=== PATIENT | male | born 1980 | race Caucasian/White ===

== ENCOUNTER 2022-03-07 19:42 | Emergency (ER) | payer BC, SELFPAY ==
--- NOTE | ~2022-03-07 | XR_ITS ---
EXAM: XR hand LT min 3V DATE: 03/07/2022 20:20 HISTORY: dogbite to hand,wounds mult fingers, palm prox Lt thumb . COMPARISON: None available. FINDINGS: Normal mineralization. No acute fracture or dislocation. Old ulnar styloid fracture fragme nt. No lytic or blastic lesion. Joint spaces are maintained. No erosion or periosteal change. Subcuta neous emphysema over the dorsum of the hand. IMPRESSION: No acute osseous finding in the left hand. Reviewed, dictated and finalized at location K.
[2022-03-07 19:45] VITALS: BP 153/84; PULSE 84; RESP 18; TEMP 37; O2SAT 100
--- NOTE | 2022-03-07 20:04 | ED.ANIMALBIT ---
HPI - Animal Bite General Chief Complaint: Animal Bite Stated Complaint: dog bite Time Seen by Provider: 03/07/22 19:51 History of Present Illness HPI narrative: 41-year-old male presents to the emergency room for evaluation of a dog bite to his left hand. Patient states the dog is known to him and is up-to-date on his immunizations. Patient reports lacerations to the base of his left thumb and his right pinky. Hand pain is worse with movement. Related Data Allergies Allergy/AdvReac Type Severity Reaction Status Date / Time No Known Allergies Allergy Unverified 10/01/16 17:41 Review of Systems Review of Systems: CONSTITUTIONAL: Denies fever, chills, or sweats. EYES: Denies visual changes, redness, or discharge. ENT: Denies rhinorrhea, congestion, sore throat, or otalgia. CARDIOVASCULAR: Denies chest pain, palpitations, or edema. RESPIRATORY: Denies cough or dyspnea. GASTROINTESTINAL: Denies abdominal pain, nausea, vomiting, or diarrhea. GENITOURINARY: Denies dysuria or hematuria. SKIN: Multiple lacerations and puncture wounds to left hand MUSCULOSKELETAL: Left hand pain NEUROLOGIC: Denies headache, numbness, dizziness, or weakness. PSYCHIATRIC: Denies anxiety or depression. Exam Narrative: GENERAL: Well-appearing, well-nourished, and in no acute distress. HEAD: Normocephalic, atraumatic. EYES: PERRLA and EOMI. CHEST: Clear to auscultation. No respiratory distress. No wheezes rales or rhonchi HEART: Regular rate and rhythm. No murmur heard. Normal peripheral pulses. EXTREMITIES: Left hand: Tenderness to the thumb, palm and fourth and fifth digits SKIN: Left hand: Laceration noted palmar surface of the left hand at the base of the thumb, dorsal surface of the fifth finger, puncture wounds to the third and fourth fingers NEURO: No focal deficits. Alert and oriented x3. PSYCH: Normal mood and affect. Course Vital Signs Vital signs: Vital Signs Temperature 37.0 C 03/07/22 19:45 Pulse Rate 84 03/07/22 19:45 Respiratory Rate 18 03/07/22 19:45 Blood Pressure 153/84 H 03/07/22 19:45 Pulse Oximetry 100 03/07/22 19:45 Oxygen Delivery Room Air 03/07/22 19:45 Temperature 37.0 C 03/07/22 19:45 Pulse Rate 84 03/07/22 19:45 Respiratory Rate 18 03/07/22 19:45 Blood Pressure 153/84 H 03/07/22 19:45 Pulse Oximetry 100 03/07/22 19:45 Oxygen Delivery Room Air 03/07/22 19:45 Procedures Laceration Laceration 1: Date: 03/07/22 Time: 21:04 Site: hand Side (If applicable): left Size (cm): 1 Description: linear Depth: simple, single layer Local Anesthetic: lidocaine 1% Amount of anesthesia used (mL): 3 Pre-repair: irrigated extensively ====== Skin Level ====== Skin layer closed with: nylon Size (cm): 4-0 Number of sutures: 2 Technique: simple, interrupted ====== Subcutaneous Layer ====== ====== Muscle Layer ====== ====== Tendon Layer ====== MDM - Animal Bite MDM Narrative Medical decision making narrative: 41-year-old male presented the emergency room for evaluation of a dog bite to his left hand. Plain films of the left hand showed no acute bony abnormality. Patient had a 2 cm laceration to the palmar side of the base of the thumb, puncture wound to the dorsal side of the hand, dorsal side of the tip of the left middle finger, and a 1 cm stellate laceration over the PIP joint of the left fifth digit. To retentions sutures were placed to the laceration of the base of the left hand after extensive irrigation. Steri-Strips were placed to the laceration over the left fifth digit after extensive irrigation. Patient was given wound care instructions. Discharge Plan Discharge Clinical Impression: Dog bite Patient Disposition: Home, Self-Care Condition: Stable Instructions: Antibiotic Form, Animal Bite (ED), Care For Your Stitches (ED), Laceration (ED) Additional
[2022-03-07] MEDS: HYDROcodone/acetaminophen (*CRX) 5-325 MG TABLET 1 TAB PO (21:12)
[2022-03-07] MEDS: AMOXICILLIN/CLAVULANATE K 875-125 MG TAB 1 TABLET PO (21:12)
== END 2022-03-07 21:35 | disposition home or self-care (01) ==
PROVIDERS: Emergency Provider Nurse Practitioner Family; PCP Physician Assistant
DX: S61.452A Open bite of left hand, initial encounter (principal); W54.0XXA Bitten by dog, initial encounter
CPT/HCPCS: 12001; 73130; 99283; A9270

== ENCOUNTER 2022-03-18 10:07 | Day surgery (SDC) | payer BC, SELFPAY ==
[2022-03-18] VITALS (16 sets, daily range): BP systolic 129–150; BP diastolic 66–81; PULSE 76–95; RESP 14–19; TEMP 36.4–37.2; O2SAT 90–100
--- NOTE | ~2022-03-18 | CT_ITS ---
EXAMINATION: CT abdomen pelvis wo con DATE: 03/18/2022 11:20 INDICATION: Right lower groin and right flank pain TECHNIQUE: Computed tomography (CT) of the abdomen and pelvis was performed without intravenous contr ast. The dose-length product (DLP) was 409.21 mGy-cm. Automated exposure control and iterative recons truction technique were employed. COMPARISON: None FINDINGS: Minimal dependent atelectasis is present in the lung bases. The heart size is normal. The l iver, spleen, pancreas, gallbladder, and adrenal glands are normal. The kidneys are unremarkable. The dilated appendix measures up to 13 mm. There is edematous stranding of the periappendiceal fat. Ther e is no evidence of perforation or periappendiceal abscess. No pathologically enlarged abdominal or p elvic lymph nodes are identified. There is no free intraperitoneal gas or evidence of bowel obstructi on. IMPRESSION: 1. Acute appendicitis. Reviewed, dictated and finalized at location A. IMPRESSION: 1. Acute appendicitis.
--- NOTE | ~2022-03-18 | XR_ITS ---
EXAMINATION: XR hip RT 2V w AP pelvis DATE: 03/18/2022 12:19 INDICATION: Right hip pain. TECHNIQUE: An anteroposterior view of the pelvis and 2 views of right hip were obtained. COMPARISON: CT abdomen and pelvis 03/18/2022 FINDINGS: Bone alignment is normal. No fracture. There is mild osteoarthritis of the hips. There is a dilated loop of small bowel bowel in right abdomen. IMPRESSION: 1. Mild osteoarthritis of the hips. 2. Dilated loop of small bowel in right abdomen, likely adynamic ileus. Reviewed, dictated and finalized at location A.
--- NOTE | 2022-03-18 10:14 | ED.LOWEXIN ---
HPI - Extremity Injury (Lower) General Chief Complaint: Extremity Injury, Lower Stated Complaint: R hip pain, radiating Time Seen by Provider: 03/18/22 10:14 History of Present Illness HPI Narrative: Patient is a previously healthy 41-year-old male presenting to the emergency department for evaluation of right lower quadrant abdominal pain that radiates into his right hip and right testicle. Patient is reporting pain that is worsened over the past 24 hours. Associated with nausea, denies fever or chills. He denies upper abdominal pain or any episodes of emesis. He denies diarrhea or constipation. He denies any hematuria, dysuria, frequency or hesitancy. Patient denies pain such as this in the past. He denies recent fall, injury, heavy lifting or bending. Patient denies any history of abdominal surgery. He denies penile pain or discharge. Patient reports that yesterday he felt the pain radiate down into his right buttocks and right leg and thought maybe he had injured his back but denies any recent back injury or history of back injury or chronic back pain. Patient states that due to the severity of the pain overnight that has prompted his visit this morning. His last solid oral intake was last night. He did have a small amount of water on his way to the hospital this morning approximately 1 hour prior to arrival. Related Data Home Medications Medication Instructions Recorded Confirmed No Home Medications 03/18/22 03/18/22 Allergies Allergy/AdvReac Type Severity Reaction Status Date / Time No Known Allergies Allergy Verified 03/18/22 10:20 Review of Systems Review of Systems: CONSTITUTIONAL: Denies fever, chills, or sweats. EYES: Denies visual changes, redness, or discharge. ENT: Denies rhinorrhea, congestion, sore throat, or otalgia. CARDIOVASCULAR: Denies chest pain, palpitations, or edema. RESPIRATORY: Denies cough or dyspnea. GASTROINTESTINAL: Reports right lower quadrant abdominal pain, reports nausea without vomiting GENITOURINARY: Denies dysuria or hematuria. Reports right testicular pain SKIN: Denies rash or itching. MUSCULOSKELETAL: Denies back pain, reports radiation of pain into right hip NEUROLOGIC: Denies headache, numbness, or weakness. [facility] Past Medical History Medical History (Updated 03/18/22 @ 11:55 by Joy Givens MD) Dog bite, hand Social History Social History (Updated 03/18/22 @ 11:10 by Joy Givens MD) Smoking status: Never smoker Alcohol intake: current Alcohol use details: occasional Substance use: never Gender identity (if verbalized by the patient): Male Exam Narrative: GENERAL: Awake, alert, conversant HEAD: Normocephalic, atraumatic. EYES: PERRLA and EOMI. ENT: Nares clear, no rhinorrhea or epistaxis. Mucous membranes moist. NECK: Supple. CHEST: No respiratory distress, breathing even and non labored HEART: Regular rate, sinus rhythm ABDOMEN:Non distended, tender in the right lower quadrant, positive guarding, no flank tenderness bilaterally, negative Rovsing sign, no rebound, nonrigid EXTREMITIES: Normal range of motion. No edema. SKIN: Warm, dry, no rash. NEURO:No focal deficits. Alert and oriented x3 Course Vital Signs Vital signs: Vital Signs Temperature 36.4 C 03/18/22 10:18 Pulse Rate 90 03/18/22 10:18 Respiratory Rate 16 03/18/22 10:18 Blood Pressure 134/75 03/18/22 10:18 Pulse Oximetry 98 03/18/22 10:18 Temperature 36.4 C 03/18/22 10:18 Pulse Rate 90 03/18/22 10:18 Respiratory Rate 16 03/18/22 10:18 Blood Pressure 134/75 03/18/22 10:18 Pulse Oximetry 98 03/18/22 10:18 MDM - Extremity Injury (Lower) MDM Narrative Medical decision making narrative: Patient presenting for evaluation of right lower quadrant abdominal pain with radiation into the right hip, no flank pain. At the time of assessment, patient is quite tender in the right lower quadrant with concern for potentially renal colic ve
[2022-03-18 11:19] LABS: Basophils Absolute Auto 0.1 K/mm3 (0.0-0.1); Basophils Percent Auto 0.3 % (0.2-1.2); Eosinophils Absolute Auto 0.1 K/mm3 (0-0.3); Eosinophils Percent Auto 0.5 % (0-4.4); Hematocrit 41.1 % (42.0-52.0); Hemoglobin 13.4 g/dL (14.0-18.0); Immature Granulocyte Absolute 0.15 K/mm3 (0.00-0.031); Immature Granulocyte Percent A 0.7 % (0-0.5); Lymphocytes Absolute Auto 2.17 K/mm3 (0.9-3.2); Lymphocytes Percent Auto 9.8 % (18.3-44.2); Mean Corpuscular HGB Conc 32.6 g/dl (32-36); Mean Corpuscular Hemoglobin 30.9 pg (26-34); Mean Corpuscular Volume 94.9 fl (80-100); Mean Platelet Volume 8.6 fl (7.4-10.4); Monocytes Absolute Auto 1.2 K/mm3 (0.1-0.6); Monocytes Percent Auto 5.5 % (2.6-8.5); Neutrophils Absolute Auto 18.5 K/mm3 (1.3-6.7); Neutrophils Percent Auto 83.2 % (45.5-73.1); Platelet Count Result 287 k/mm3 (150-375); Red Blood Count 4.33 M/mm3 (4.6-6.20); Red Cell Distribution Width 12.8 % (11.5-14.5); White Blood Count 22.2 K/mm3 (4.5-10.0)
[2022-03-18 11:22] LABS: Appearance Urine Clear (Clear); Bilirubin Urine Negative (Negative); Color Urine Yellow (Yellow); Glucose Urine UA Negative (Negative); Ketones Urine Negative (Negative); Leukocyte Esterase Ur Negative LEU/UL (Negative); Nitrate Urine Negative (Negative); Protein Urine Negative (Negative); Urobilinogen Urine 0.2 mg/dL (<2.0)
[2022-03-18 11:25] LABS: Mucus Urine Rare /lpf
[2022-03-18 11:33] LABS: CRP 7.3 mg/dL (<1.0)
[2022-03-18 11:36] LABS: Add Urine Microscopic? YES; Blood Urine Trace-Intact (Negative)
[2022-03-18 11:50] LABS: Erythrocyte Sedimentation Rate 10 mm/hr (0-20)
[2022-03-18] MEDS: SODIUM CHLORIDE 0.9% IV 1,000 ML 999 ML IV CONT (11:55)
[2022-03-18] MEDS: ONDANSETRON INJ 4 MG/2 ML VIAL IV PUSH (11:56)
[2022-03-18] MEDS: MORPHINE SULFATE (*CRX) 4 MG/ML INJ IV PUSH (12:21)
--- NOTE | 2022-03-18 13:03 | PM.SD2 ---
Same Day Admit/Disch: [facility] History of Present Illness Chief complaint: Right lower quadrant abdominal pain Narrative: Luis Kimbrough is a 41 year old male who started noticing right lower quadrant pain that went to his buttocks and to his testicle yesterday. This worsened through the night and was associated with nausea. He has had no fever or chills. He came to the emergency room this morning because he was having persistent and more severe pain. He was noted to have tenderness in the right lower quadrant. His white blood cell count was elevated to 20,000. He had a CT scan of the abdomen and pelvis that showed a 13 mm dilated appendix with periappendiceal stranding consistent with acute appendicitis. He is taken to surgery now for laparoscopic appendectomy for acute appendicitis. [facility] Past Medical History Medical History (Updated 03/18/22 @ 11:55 by Joy Givens MD) Dog bite, hand Social History Social History Smoking status: Never smoker Alcohol intake: current Alcohol use details: occasional Substance use: never Gender identity (if verbalized by the patient): Male Same Day Admit/Disch: Med Pre-admit Medications Home Medications Medication Instructions Recorded Confirmed Type hydrocodone 5 mg-acetaminophen 325 1 - 2 tablet PO Q6H PRN pain #10 03/18/22 Rx mg tablet tabs ketorolac 10 mg tablet 10 mg PO Q6H 4 days #16 tabs 03/18/22 Rx Exam Const: General: comfortable and no acute distress; No confusion Orientation/consciousness: patient oriented x3 and No confusion Resp: Effort & Inspection: normal respiratory effort Auscultation: clear to auscultation bilaterally Cardio: Rate: regular rate Rhythm: regular rhythm GI: Inspection: normal to inspection, non-distended and scaphoid GI Palp: Yes Soft to palpation, Yes Tenderness to palpation present (GI) (Very tender right lower quadrant with guarding), Yes Guarding due to palpation present (GI), No Hernia present, No Palpable mass present and Yes Rebound tenderness present Auscultation: normal bowel sounds Neuro: General: patient oriented x3, no focal motor deficits and No confusion Extrem: General: no calf tenderness and no edema Psych: Affect: normal affect Insight: Good insight present (Psych) Judgement: Good judgement present (Psych) DS: Data Data Completed and Pending Labs on day of discharge: Labs from last 24 hours 03/18/22 03/18/22 03/18/22 11:14 11:11 11:11 WBC 22.2 H RBC 4.33 L Hgb 13.4 L Hct 41.1 L MCV 94.9 MCH 30.9 MCHC 32.6 RDW 12.8 Plt Count 287 MPV 8.6 Immature Gran % (Auto) 0.7 H Neut % (Auto) 83.2 H Lymph % (Auto) 9.8 L [place] % (Auto) 5.5 Eos % (Auto) 0.5 Baso % (Auto) 0.3 Lymph # (Auto) 2.17 [place] # (Auto) 1.2 H Eos # (Auto) 0.1 Baso # (Auto) 0.1 Abs Immat Gran (auto) 0.15 H Absolute Neuts (auto) 18.5 H Absolute Nucleated RBC 0.0 Nucleated RBC % 0.0 ESR 10 C-Reactive Protein 7.3 H Urine Color Yellow Urine Appearance Clear Urine pH 7.0 Ur Specific [place] 1.020 Urine Protein Negative Urine Glucose (UA) Negative Urine Ketones Negative Ur Blood (Man) Trace-intact Urine Nitrate Negative Urine Bilirubin Negative Urine Urobilinogen 0.2 Leukocyte Esterase Rfl Negative Urine Mucus Rare DS: Summary Time Spent with Patient Time attestation: Total time spent providing and/or coordinating discharge services: DS: Admitting Diagnosis Discharge Date 03/18/2022 Admitting Diagnosis Acute appendicitis-I discussed the diagnosis with the patient. I discussed the options of medical versus surgical treatment. He prefers to proceed with laparoscopic appendectomy which I have recommended. I discussed the procedure the risks the benefits and the length of recovery. All questions were answered. He understands and agrees to go ahead.
--- NOTE | 2022-03-18 13:09 | WPDHPUPDATE1 ---
History and Physical Update Update Date/Time: 03/18/22 13:09 History and Physical has been reviewed, including an updated exam of the patient. There are NO changes in the patient's condition. Risks, benefits, and alternatives have been discussed and questions answered. Patient agrees to proceed with procedure.
--- NOTE | 2022-03-18 14:03 | WPDANESEPPF ---
Anes - Initial Pre Proc Eval Procedure: Operation Date: 03/18/22 15:00 Proposed Procedures p Laparoscopic Appendectomy - Montrell Love MD Date/Time: 03/18/22 14:03 Surgeon: Montrell Love MD Pre Op Diagnosis: Right lower quadrant abdominal pain Patient Data Age: 41 Gender: M Height: 1.78 m Weight: 81 kg Last Vital Signs Temp 36.4 C 03/18/22 10:18 Pulse 90 03/18/22 10:18 Resp 16 03/18/22 10:18 BP 131/70 03/18/22 12:01 Pulse Ox 100 03/18/22 13:15 Allergies Allergy/AdvReac Type Severity Reaction Status Date / Time No Known Allergies Allergy Verified 03/18/22 10:20 Home Medications Medication Instructions Recorded Confirmed Type No Home Medications 03/18/22 03/18/22 History Laboratory Tests 03/18/22 03/18/22 03/18/22 11:11 11:11 11:14 WBC 22.2 K/mm3 H K/mm3 (4.5-10.0) RBC 4.33 M/mm3 L M/mm3 (4.6-6.20) Hgb 13.4 g/dL L g/dL (14.0-18.0) Hct 41.1 % L % (42.0-52.0) MCV 94.9 fl fl (80-100) MCH 30.9 pg pg (26-34) MCHC 32.6 g/dl g/dl (32-36) RDW 12.8 % % (11.5-14.5) Plt Count 287 k/mm3 k/mm3 (150-375) MPV 8.6 fl fl (7.4-10.4) Immature Gran % (Auto) 0.7 % H % (0-0.5) Neut % (Auto) 83.2 % H % (45.5-73.1) Lymph % (Auto) 9.8 % L % (18.3-44.2) [place] % (Auto) 5.5 % % (2.6-8.5) Eos % (Auto) 0.5 % % (0-4.4) Baso % (Auto) 0.3 % % (0.2-1.2) Lymph # (Auto) 2.17 K/mm3 K/mm3 (0.9-3.2) [place] # (Auto) 1.2 K/mm3 H K/mm3 (0.1-0.6) Eos # (Auto) 0.1 K/mm3 K/mm3 (0-0.3) Baso # (Auto) 0.1 K/mm3 K/mm3 (0.0-0.1) Abs Immat Gran (auto) 0.15 K/mm3 H K/mm3 (0.00-0.031) Absolute Neuts (auto) 18.5 K/mm3 H K/mm3 (1.3-6.7) Absolute Nucleated RBC 0.0 K/mm3 K/mm3 (0.0-0.012) Nucleated RBC % 0.0 % % (0.0-0.2) ESR 10 mm/hr mm/hr (0-20) C-Reactive Protein 7.3 mg/dL H mg/dL (<1.0) Urine Color Yellow (Yellow) Urine Appearance Clear (Clear) Urine pH 7.0 (5.0-9.0) Ur Specific [place] 1.020 (1.001-1.035) Urine Protein Negative mg/dL mg/dL (Negative) Urine Glucose (UA) Negative mg/dL mg/dL (Negative) Urine Ketones Negative mg/dL mg/dL (Negative) Ur Blood (Man) Trace-intact (Negative) Urine Nitrate Negative (Negative) Urine Bilirubin Negative (Negative) Urine Urobilinogen 0.2 mg/dL mg/dL (<2.0) Leukocyte Esterase Rfl Negative GUERLINE/UL GUERLINE/UL (Negative) Urine Mucus Rare /lpf /lpf Patient hx anesthesia problems: none Family hx anesthesia problems: none Results Review: All pre-operative results and documents have been reviewed as part of the pre-operative evaluation. [facility] Past Medical History Medical History (Updated 03/18/22 @ 11:55 by Joy Givens MD) Dog bite, hand Social History Social History Smoking status: Never smoker Alcohol intake: current Alcohol use details: occasional Substance use: never Gender identity (if verbalized by the patient): Male Anes - Eval Final PreProcedure Day of Procedure 03/18/22 14:03 Patient weight: overweight Heart: regular rate and rhythm Lungs: clear to auscultation Airway: Mallampati scale class II Neurological: alert and oriented Last oral intake: >/= 8 hours ASA classification: II Emergent: no Anesthetic plan: proceed Anesthesia type and monitoring: general ETT and standard monitoring Results Review: All pre-operative results and documents have been reviewed as part of the pre-operative evaluation. Informed Consent: The patient's anesthetic plan and its attendant risks and benefits were discussed with the patient/family/POA.
[2022-03-18] MEDS: LACTATED RINGERS 1,000 ML 30 ML IV CONT ×2 (14:20→15:06)
[2022-03-18] MEDS: LIDO 1%/EPINEPHRINE/PF 1:200,000 30 ML VIAL XX (14:30)
--- NOTE | 2022-03-18 15:30 | P.OP_ITS ---
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 The pain worsened severely through the night. He came to the emergency room this morning. He was noted to have tenderness with guarding in the right lower quadrant as [place] [id number] scan showed acute appendicitis. He is taken to surgery now for laparoscopic appendectomy. Findings Acute non perforated appendicitis Description of Procedure Patient was taken to surgery and induced into general anesthesia. The abdomen is prepped and draped. Trocars were placed in the usual fashion using 1% lidocaine with epinephrine and applied Medical optical trocars. A 5 mm camera was used. Patient was placed in Trendelenburg with the right-side elevated. The appendix was found fairly easily. It was freed from some inflammatory adhesions and the mesoappendix was exposed. Dissection was carried out in the mesoappendix. The appendiceal artery was found and was thoroughly cauterized and divided. The mesoappendix was then further dissected and divided using the cautery. Eventually the base the appendix was skeletonized. A Vicryl endoloop was used to ligate the appendix at its base. The appendix was divided just above the ligature and the mucosa of the appendiceal stump was cauterized. The appendix was then placed immediately in an Endo-Catch bag. It was retrieved through the 10 11 left lower quadrant trocar site. We replaced the trocar and then reviewed the appendiceal stump and the areas of dissection. All looked good with no evidence of bleeding or other problems. I then used the Amor cone and Amor-Alo suture Passer device. The fascia at the left lower quadrant trocar site was closed with 0 Vicryl suture. We then evacuated CO2 and removed the trocar sleeves. Skin wounds were closed with subcuticular 4-0 Monocryl skin suture. Wounds were dressed with Exofin surgical adhesive. Patient was awakened and taken to recovery in good condition. Sponge and needle counts were correct x2. Estimated Blood Loss -5 Drains No Packing No Pathology Yes (Appendix) Complications No immediate complications Condition Stable Disposition PACU [facility] Billing Surgery - Charge Forward: Surgery Billing (Laparoscopic appendectomy)
[2022-03-18] MEDS: fentaNYL CITRATE INJ (*CRX) 100 MCG/2 ML VIAL 25 MCG IV PUSH (15:32)
[2022-03-18] MEDS: oxyCODONE HCL (*CRX) 5 MG TAB IR PO (16:06)
[2022-03-18 21:38] LABS: Alanine Aminotransferase 26 U/L (6-50); Albumin Level 4.2 g/dL (3.5-5.1); Alkaline Phosphatase 50 U/L (38-126); Anion Gap 6 mmol/L (8-16); Aspartate Amino Transferase 28 U/L (17-59); Bilirubin,Total 0.3 mg/dL (0.2-1.3); Blood Urea Nitrogen 10 mg/dL (9-20); Calcium 9.3 mg/dL (8.4-10.2); Carbon Dioxide 28 mmol/L (22-30); Chloride 105 mmol/L (98-107); Estimated CRCL calculation 124 ml/min; Estimated Glomerular Filt Rate > 60; Glucose 108 mg/dL (65-110); Potassium 4.5 mmol/L (3.4-5.0); Sodium 139 mmol/L (137-145)
[2022-03-18 22:18] LABS: Lipase < 10 U/L (23-300)
== END 2022-03-18 16:54 | disposition home or self-care (01) ==
LOC: ANHED 11:58 → ANHSURGERY 12:33
PROVIDERS: Emergency Provider Emergency Medicine; PCP Physician Assistant; Visit Provider Surgery
PROC: 0DTJ4ZZ Resection of Appendix, Percutaneous Endoscopic Approach (ICD-10-PCS; CPT 44970; principal; 2022-03-18 15:00)
DX: K35.80 Unspecified acute appendicitis (principal)
CPT/HCPCS: 44970; 36415; 73502; 74176; 80053; 81001; 83690; 85025; 85652; 86140; 88304; 96365; 96367; 96375; 99285; A9270; J0131; J0330; J1100; J2250; J2270; J2405; J2543; J2704; J3010; J7030; J7120

== ENCOUNTER 2023-06-09 15:01 | Emergency (ER) | payer BC, SELFPAY ==
[2023-06-09 15:12] VITALS: BP 125/72; PULSE 80; RESP 16; TEMP 37; O2SAT 99
[2023-06-09 15:13] VITALS: BP 125/72; PULSE 80; RESP 16; TEMP 37; O2SAT 99
--- NOTE | 2023-06-09 15:37 | ED.SKABFB ---
HPI - Skin/Abscess/Foreign Bdy General Chief complaint: Skin/Abscess/Foreign Body Stated complaint: Insect Bite Time Seen by Provider: 06/09/23 15:37 Source: patient Mode of arrival: ambulatory Limitations: no limitations History of Present Illness HPI narrative: 42 yo M presents with c/o itching, pain to L calf. Was stung by bee yesterday. Taking benadryl and benadryl cream. No relief of swelling. All systems reviewed and negative except as noted above. Related Data Allergies Allergy/AdvReac Type Severity Reaction Status Date / Time No Known Allergies Allergy Verified 06/09/23 15:12 Review of Systems Review of Systems: CONSTITUTIONAL: Denies fever, chills, or sweats. EYES: Denies visual changes, redness, or discharge. ENT: Denies rhinorrhea, congestion, sore throat, or otalgia. CARDIOVASCULAR: Denies chest pain, palpitations, or edema. RESPIRATORY: Denies cough or dyspnea. GASTROINTESTINAL: Denies abdominal pain, nausea, vomiting, or diarrhea. GENITOURINARY: Denies dysuria or hematuria. SKIN: reports itching, swelling and redness to posterior left Calf MUSCULOSKELETAL: Denies back pain, joint pain, or myalgia. NEUROLOGIC: Denies headache, numbness, or weakness. PSYCHIATRIC: Denies anxiety or depression. All other systems reviewed are negative, except as documented in HPI. [facility] Past Medical History Medical History (Updated 06/09/23 @ 15:44 by Donna Olvera NP) Dog bite, hand Surgical History Surgical History (Updated 04/02/22 @ 11:44 by JJ Yin) History of laparoscopic appendectomy 03/18/22 Social History Social History Smoking status: Never smoker Alcohol intake: current Alcohol use details: occasional Substance use: never Gender identity (if verbalized by the patient): Male Comments At time of signature, agree with nursing past medical, surgical, social and family history. There is no relevant family history pertinent to the presenting complaint. Exam Narrative: GENERAL: This is a well-nourished, well-developed patient, in no apparent distress. HEAD: normocephalic, atraumatic. EYES: PERRL. Sclera clear/white. Vision is grossly intact. EARS: External ears normal NOSE: External nose normal NECK: Neck supple, non-tender without lymphadenopathy, masses or thyromegaly. CARDIOVASCULAR: Regular rate and rhythm without murmurs, gallops, or rubs. RESPIRATORY: Clear to auscultation. Breath sounds equal bilaterally. No wheezes, rales, or rhonchi. SKIN: warm, Dry, intact with no suspicious lesions or rash, good texture and turgor. erythema to posterior L calf with warmth, swelling, tender on palpation. approx. 8x12cm. NEURO: awake, alert, and oriented to person, place and time. There were no obvious focal neurologic abnormalities. EXTREMITIES: No joint tenderness, effusion, or edema noted. Course Course Level of Care: Express Care Visit Vital Signs Vital signs: Vital Signs Temperature 37.0 C 06/09/23 15:12 Pulse Rate 80 06/09/23 15:12 Respiratory Rate 16 06/09/23 15:12 Blood Pressure 125/72 06/09/23 15:12 Pulse Oximetry 99 06/09/23 15:12 Oxygen Delivery Room Air 06/09/23 15:12 Temperature 37.0 C 06/09/23 15:13 Pulse Rate 80 06/09/23 15:13 Respiratory Rate 16 06/09/23 15:13 Blood Pressure 125/72 06/09/23 15:13 Pulse Oximetry 99 06/09/23 15:13 Oxygen Delivery Room Air 06/09/23 15:13 reviewed MDM - Skin/Abscess/Foreign Bdy MDM Narrative Medical decision making narrative: Patient is aware of diagnosis, understands and agrees to treatment plan. Anticipatory guidance given. Patient agrees to follow-up as directed and is aware of reasons to seek care at the emergency department. Portions of this record may have been created with voice recognition software Differential Diagnosis Differential diagnosis: Likely insect bites Discharge Plan Discharge
== END 2023-06-09 15:49 | disposition home or self-care (01) ==
PROVIDERS: Emergency Provider Nurse Practitioner Family; PCP Physician Assistant
DX: S80.862A Insect bite (nonvenomous), left lower leg, initial encounter (principal); W57.XXXA Bitten or stung by nonvenomous insect and other nonvenomous arthropods, initial encounter
CPT/HCPCS: 99213; G0463

== ENCOUNTER 2023-08-30 19:08 | Emergency (ER) | payer BC, SELFPAY ==
--- NOTE | 2023-08-30 19:10 | ED.SKABFB ---
HPI - Skin/Abscess/Foreign Bdy General Chief complaint: Skin/Abscess/Foreign Body Stated complaint: Boil On Back Time Seen by Provider: 08/30/23 19:10 Source: patient Mode of arrival: ambulatory Limitations: no limitations History of Present Illness HPI narrative: Luis is a 42-year-old male patient presenting to the clinic today with complaints of a boil on his back. He reports a boil has been there for approximately 6 day weeks. States his gradually get better and red and painful. Denies any fever or chills. Related Data Allergies Allergy/AdvReac Type Severity Reaction Status Date / Time No Known Allergies Allergy Verified 08/30/23 19:10 Review of Systems Review of Systems: Pertinent positives per HPI. Patient denies any fever, chills, rash, headache, visual changes, dizziness, cough, runny nose, sore throat, shortness of breath, chest pain, palpitations, nausea, vomiting, diarrhea, constipation, abdominal pain, or any urinary issues. [facility] Past Medical History Medical History Dog bite, hand Surgical History Surgical History History of laparoscopic appendectomy 03/18/22 Social History Social History Smoking status: Never smoker Alcohol intake: current Alcohol use details: occasional Substance use: never Gender identity (if verbalized by the patient): Male Comments At the time of my signature, I reviewed and agree with the nursing past medical, surgical, social, and family history. There is no relevant family history pertinent to the patient complaint. Exam Narrative: General: Well-developed, well nourished, in no apparent distress Head: Normocephalic, atraumatic. Cardio: Regular rate and rhythm, s1 and s2 normal, no murmur appreciated. Resp: Clear to auscultation bilaterally, no rhonchi, rales, wheezing or rubs. Integumentary: [place], warm, and dry, golf ball size infected sebaceous cyst to the mid upper back just above the shoulder blades. Area is tender to palpation without erythema. Not much fluctuance Course Course Emergency Course: Portions of this record may have been created with voice recognition software. Level of Care: Express Care Visit Vital Signs Vital signs: Vital Signs Temperature 37.0 C 08/30/23 19:15 Pulse Rate 83 08/30/23 19:15 Respiratory Rate 16 08/30/23 19:15 Blood Pressure 135/72 08/30/23 19:15 Pulse Oximetry 98 08/30/23 19:15 Oxygen Delivery Room Air 08/30/23 19:15 Temperature 37.0 C 08/30/23 19:15 Pulse Rate 83 08/30/23 19:15 Respiratory Rate 16 08/30/23 19:15 Blood Pressure 135/72 08/30/23 19:15 Pulse Oximetry 98 08/30/23 19:15 Oxygen Delivery Room Air 08/30/23 19:15 Vital signs reviewed Procedures Abscess I/D back: Date of Incision: 08/30/23 Local Anesthetic: lidocaine 1% and with epi Amount of anesthesia used (mL): 2 Technique: incised with #11 blade Amount of fluid expressed (mL): 3 Irrigation: No Packing used?: none I&D Results: Pus and Blood Abcess I&D Additional Comments: Verbal consent obtained for incision and drainage of infected sebaceous cyst. Risk and benefits explained and patient voiced understanding. Area was cleansed with betadine. Area was prepped and draped using sterile technique. 25 gauge needle was then used to instill 3 ml of lidocaine with epi into the wound edges. Patient tolerated well and anesthesia was appropriate. An 11 blade scalpel was then used to make a 0.5cm incision over the cyst. White bloody cyst material exudate expressed from cavity. Wound culture obtained and sent to lab. Patient tolerated procedure well. MDM - Skin/Abscess/Foreign Bdy MDM Narrative Medical decision making narrative: At the time of visit patient is resting comfort
[2023-08-30 19:15] VITALS: BP 135/72; PULSE 83; RESP 16; TEMP 37; O2SAT 98
== END 2023-08-30 19:45 | disposition home or self-care (01) ==
PROVIDERS: Emergency Provider Nurse Practitioner Family; PCP Physician Assistant
DX: L72.3 Sebaceous cyst (principal)
CPT/HCPCS: 10060; 87070; 87075; 87205; 99213; G0463

== ENCOUNTER 2024-12-01 22:55 | Emergency (ER) | payer BC, SELFPAY ==
[2024-12-01 22:55] VITALS: BP 129/79; PULSE 94; RESP 15; TEMP 36.6; O2SAT 98
--- OUTSIDE RECORDS SUMMARY | 2024-12-01 22:56 | XMS_ITS | Clinical Summary ---
Author Organization [facility] Address [address] [place] [address] Care Team Providers Care Specialist Field Engineer Name Role Phone Racheal Wilkerson PA-C Primary Care Provider [phone] Source Comments [facility],non-owned Affiliates and Associated Physician Practices is amultiple site organization consisting of ambulatory clinics and hospital sitesin [place], [place], [place] and [place]. This disclosure is being madepursuant to the Care Everywhere program and may not contain all information available regarding this patient. Last updated 18.[facility] Allergies No known active allergies Medications * Be aware that medications may not be up to date on this document. Alwaysverify current medications with the patient. Medication Sig Dispensed Refills Start Date End Date Status Loratadine (CLARITIN PO) Active multivitamins (ONE A DAY) capsule Take 1 capsule by mouth once daily Active Grrfbv-Xxczzhyge-Airl uron-MSM (GLUCOSAMINE CHONDROITIN JOINT PO) Act felicitas fluticasone propionate (FLONASE) 50 MCG/ACT nasal sprayIndications:Acut e non-recurrent sinusitis of other sinus [place] 2 sprays into each nostril once daily 1 bottles 04/20/2019 Active Family History Medical History Relation Name Comments Hypertension Mother Relation Name Status Comments Mother Alive Social History Tobacco Use Types Packs/Day Years Used Date Smoking Tobacco: Former Cigarettes 0.3 10 2 004 - 2013 Smokeless Tobacco: Never Alcohol Use Standard Drinks/Week Comments Yes 0 (1 standard drink = 0.6 oz pur e alcohol) occasionally Sex and Gender Information Value Date Recorded Sex Assigned at Not on file Gender Identity Not on file Sexual Orientation Not on file Last Filed Vital Signs Vital Sign Reading Time Taken Comments Blood Pressure 118/66 04/20/2019 3:39 PM CDT Pulse 74 04/20/2019 3:39 PM CDT Temperature 36.7 C (98 F) 04/20/2019 3:39 PM CDT Respiratory Rate 16 04/20/2019 3:39 PM CDT Oxygen Saturation 97% 04/20/2019 3:39 PM CDT Inhaled Oxygen Concentration - - Weight 86.2 kg (190 lb) 04/20/2019 3:39 PM CDT Height 177.8 cm (5' 10 ) 04/20/2019 3:39 PM CDT Body Mass Index 27.26 04/20/2019 3:39 PM CDT Plan of Treatment Health Maintenance Due Date Last Done Comments LIPID TESTING 1980 HIV SCREENING 12/11/1995 HEPATITIS C SCREENING 12/06/1998 DTAP/TDAP/TD VACCINES (1 - Tdap) 12/11/1999 HEPATITIS B VACCINE (1 of 3 - 19+ 3-dose series) 12/11/1999 COVID-19 VACCINE ( - 2023-2 5 season) 2024 INFLUENZA VACCINE (#1) 2024 DEPRESSION SCREENING 09/27/2024 ZOSTER VACCINE (1 of 2) 2030 HIB VACCINE Aged Out No longer eligi ble based on patient's age to complete this topic HPV VACCINE Aged Out No longer eligi ble based on patient's age to complete this topic MENINGOCOCCAL (Group B) VACCINE Aged Out No longer eligible based on patient's age to complete this topic MENINGOCOCCAL VACCINE Aged Out No hunter [place] eligible based on patient's age to complete this topic PNEUMOCOCCAL VACCINE Aged Out No long er eligible based on patient's age to complete this topic Care Teams Specialist Field Engineer Relationship Specialty Start Date End Date Racheal Wilkerson PA-C PCP - General Physician Electrical Maintenance Mechanic 04/24/18
--- OUTSIDE RECORDS SUMMARY | 2024-12-01 22:56 | XMS_ITS | Encounter Summary ---
Author Organization [facility] Address [address] [place] [address] Care Team Providers Care Carbon Dioxide Operator Name Role Phone Racheal Wilkerson Primary Care Provider [phone] Reason for Visit * Reason Onset Date Comments Reminder to get labs done prior to next visit/ne eds appt re 11/15/2024 Encounter Details Date Type Department Care Team (Late st Contact Info) Description 11/15/2024 Telephone [facility] Family Medicine [address] [place] [address] Racheal Wilkerson PA [address] [facility] [address] [place] [address] Reminder to get labs done prior to next visit/needs appt re Social History Tobacco Use Types Packs/Day Years Used Date Smoking Tobacco: Former Smokeless Tobacco: Never Alcohol Use Standard Drinks/Week Comments Yes 0 (1 standard drink = 0.6 oz pur e alcohol) AUDIT-C Answer Date Recorded Q1: How often do you have a drink containing alc ohol? Monthly or less 04/03/2022 Q2: How many drinks containi ng alcohol do you have on a typical day when you are drinking? 1 or 2 04/03/2022 Q3: How often do you have si x or more drinks on one occasion? 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 Not on file Not on file Not on file documented as of this encounter Miscellaneous Notes * Telephone Encounter - Monica Irizarry LPN - 11/16/2024 8:10 AM STICK FEEDER Spoke to pt and reminded him to get labs. K FEEDER * Telephone Encounter - Racheal Wilkerson PA - 11/15/2024 9:02 PM STICK FEEDER Patients followup appointment needs rescheduled --- Remind him to get labs'/urine prior to the visit. K FEEDER documented in this encounter Plan of Treatment Not on file documented as of this encounter Visit Diagnoses Not on filedocumented in this encounter Care Teams Carbon Dioxide Operator Relationship Specialty Start Date End Date Racheal Wilkerson PA [address] [facility] [place] [address] PCP - General Internal Medicine 07/25/19 documented as of this encounter
--- OUTSIDE RECORDS SUMMARY | 2024-12-01 22:56 | XMS_ITS | Patient Health Summary ---
Author Organization [facility] Address [address] [place] [address] Care Team Providers Care Supervisor Color Making Name Role Phone Racheal Wilkerson PA-C Primary Care Provider [phone] Note from [facility],non-owned Affiliates and Associated Physician Practices is amultiple site organization consisting of ambulatory clinics and hospital sitesin [place], [place], [place] and [place]. This disclosure is being madepursuant to the Care Everywhere program and may not contain all information available regarding this patient. Last updated 18.[facility] Allergies No known active allergies Medications * Be aware that medications may not be up to date on this document. Alwaysverify current medications with the patient. * Loratadine (CLARITIN PO) * multivitamins (ONE A DAY) capsule Take 1 capsule by mouth once daily * Wihkfs-Xjhnlsuhq-Uxskohlf-MSM (GLUCOSAMINE CHONDROITIN JOINT PO) * fluticasone propionate (FLONASE) 50 MCG/ACT nasal spray(Started 04/20/2019) [place] 2 sprays into each nostril once daily Social History Tobacco Use Types Packs/Day Years Used Date Smoking Tobacco: Former Cigarettes 0.3 10 2 004 - 2014 Smokeless Tobacco: Never Alcohol Use Standard Drinks/Week [...] Mass Index 27.26 04/20/2019 3:39 PM CDT Procedures * STREP A SCREEN - POINT OF CARE (AMB) STL(Performed 04/20/2019) Performed for Acute non-recurrent sinusitis of other sinus Results * STREP A SCREEN (04/20/2019 3:58 PM CDT) Strep A Rapid POCT Negative Negative Strep A Internal Control Present Lot # [id number] Expiration Date 09/26/2020 Throat ENTIRE THROAT (SURFACE REGION OF NECK) / Unknown 04/20/2019 3:58 PM CDT Kasey Anderson ASSET ANALYST-[facility] - POIN T OF CARE ORDERABLES Care Teams Supervisor Color Making Relationship Specialty Start Date End Date Racheal Wilkerson, [facility] PCP - General Physician Injection Mold Technician 04/24/18
--- OUTSIDE RECORDS SUMMARY | 2024-12-01 22:56 | XMS_ITS | Clinical Summary ---
Author Organization [facility] [address] [facility] Address [address] [place] [address] Care Team Providers Care Network Control Operators Supervisor Name Role Phone Racheal Wilkerson Primary Care Provider [phone]- [phone] Allergies No known active allergies Medications multivitamin tabletIndicatio ns:Vitamin Deficiency Prevention Take 1 tablet by mouth Active ibuprofen (ADVIL,MOTRIN) 800 mg tablet Take 1 tablet (800 mg total) by mouth 3 (three) times a day 21 tablet 08/10/2019 Active glucosam-chondr oitin-diet cb25 116-100 mg capsule Take 2 capsules by mouth daily Active rosuvastatin (CRESTOR) 5 mg tablet Take 1 tablet (5 mg total) by mouth daily 90 tablet 1 07/20/2024 Active lisinopriL (PRINIVIL,ZESTR IL) 2.5 mg tablet Take 1 tablet (2.5 mg total) by mouth daily 90 tablet 1 07/20/2024 Active Active Problems Problem Noted Date Diagnosed Date Elevated MCV 07/23/2024 Assessment & Plan (07/23/2024 11:12 PM CDT): Check labs Controlled type 2 diabetes seth olivarez without complication, without long-term current use of insulin 07/23/2024 Assessment & Plan (07/23/2024 11:13 PM CDT): New Diagnosis Diabetes. Discussed with patient at length diabetes, pathogenesis, fci sequela, end organ damage, diet/exercise/weight loss, and medication options for treatment. Reviewed A1c, normal values, goals of treatment and need to monitor about every 90 days until well regulated. Discussed importance of annual DM eye exams. Reviewed benefits of ESAU and Statin as a diabetic. Discussed how DM affects the kidney's and ways to monitor. Reviewed increased CV risk and importance of tight control. Reviewed foot care and need to wear shoes to check feet on a regular basis to avoid fci problems. Offered referral to director facilities maintenance. Discussed medication options including the risks benefits alternatives side effects and proper use. Patient would really like to try to make dietary changes and behavioral changes before starting medication. Agree with his plan. Will recheck labs in 4-6 months and see where his A1c is. Discussed starting statin and ESAU inhibitor for renal and cardiovascular protection. Reviewed the risks benefits alternatives side effects and proper use. Start leg since December 27 0.5 mg daily and Crestor 5 mg daily. Recheck labs in 4-6 months Need for influenza vaccination 07/23/2024 Assessment & Plan (07/23/2024 11:13 PM CDT): Flu vaccine updated in the office today BMI 24.0-24.9, adult 05/28/2023 Assessment & Plan (07/23/2024 11:12 PM CDT): Weight/BMI is in healthy range. Continue healthy lifestyle to maintain. Assessment & Plan (05/28/2023 10:58 PM CDT): Weight/BMI is in healthy range. Continue healthy lifestyle to maintain. Diarrhea 05/28/2023 Assessment & Plan (05/28/2023 11:00 PM CDT): Patient has had chronic diarrhea for about the last month. Has had G I symptoms and f or many years. Recommend starting with stool cultures and check labs including celiac screen. He is already aware of a lot of the foods that trigger it but went over a FODMAP diet and encouraged to try to eliminate triggers and then add in slowly to see if they can be identified. Will have patient follow-up in 4-6 months and if symptoms are still persisting and labs and cultures are negative will consider referral to GI. He is in agreement with the plan Decreased range of motion of finger of left hand 03/24/2022 Assessment & Plan (04/24/2022 1:15 PM CDT): He reports desire to return to work. Will provide letter for him. He will finish out PT today. He will follow up if symptoms are not improving or if they worsen. Assessment & Plan (04/18/2022 7:47 PM CDT): Incision has healed well still limited motion in the 5th finger on that hand. Dr. Castanon has ordered physical therapy with the hand specialist. Will await further recommendations pending the therapy. He will remain off work until released by Dr. Castanon Assessment & Plan (03/24/2022 7:34 PM CDT): Puncture wound is healed well. He still has limitations with movement of his left 5th finger. Referral to Ortho Hand has been made and just awaiting appointment. May benefit from physical therapy but would prefer evaluation by hand before sending him. Instructed him to remain off work through his next visit and will reassess at that time. Status post laparoscopic appendectomy 03/24/2022 Overview (03/24/2022): 02/2022 Assessment & Plan (04/24/2022 1:15 PM CDT): Symptoms resolved Assessment & Plan (03/24/2022 7:34 PM CDT): Status post lap appendectomy by Dr. staples at [facility]. He has tolerated the procedure well. No signs or symptoms of postoperative infection. His pain is well controlled with an occasional hydrocodone and Tylenol. Bowels are back to normal. Continue to monitor closely. Follow-up with Dr. Love as instructed. Decreased range of motion of left thumb 03/22/20 Assessment & Plan (03/22/2022 6:37 PM CDT): ncision is healing well he however is still having decreased range of motion especially around the thumb and swelling in the hand. Will refer to hand specialist for further evaluation especially this 5th finger and encouraged him to remain off work until he is further evaluated in has more range of motion in the hand. Resolved Problems Problem Noted Date Diagnosed Date Resolved Date Diabetes mellitus screening 05/28/2023 07/19/2024 Assessment & Plan (05/28/2023 10:58 PM CDT): Check labs Lipid screening 05/28/2023 07/19/2024 Assessment & Plan (05/28/2023 10:58 PM CDT): Check labs Fatigue 05/28/2023 07/19/2024 Assessment & Plan (05/28/2023 10:58 PM CDT): Check labs Sore throat 12/13/2022 07/19/2024 Assessment & Plan (12/13/2022 10:20 PM CDT): Start antibiotic, antihistamine (Claritin OR Zyrtec), Mucinex 12hour and Steroid nasal spray (Flonase). Push fluids. Rest. Supportive care. If sxs worsen or don\'t improve, pt is to followup in the office. BMI 24.0-24.9, adult 03/24/2022 022 Assessment & Plan (03/24/2022 10:16 AM CDT): Weight/BMI is in healthy range. Continue healthy lifestyle to maintain. Visit for suture removal 03/22/2022 Assessment & Plan (03/22/2022 6:38 PM CDT): Two sutures removed at the thenar aspect of the hand. Patient tolerated well Dog bite 03/10/2022 07/19/2024 Assessment & Plan (04/24/2022 1:15 PM CDT): He reports desire to return to work. Will provide letter for him. He will finish out PT today. He will follow up if symptoms are not improving or if they worsen. Assessment & Plan (03/24/2022 7:34 PM CDT): Puncture wound is healed well. He still has limitations with movement of his left 5th finger. Referral to Ortho Hand has been made and just awaiting appointment. May benefit from physical therapy but would prefer evaluation by hand before sending him. Assessment & Plan (03/22/2022 6:37 PM CDT): Incision is healing well he however is still having decreased range of motion especially around the thumb and swelling in the hand. Will refer to hand specialist for further evaluation especially this 5th finger and encouraged him to remain off work until he is further evaluated in has more range of motion in the hand. Assessment & Plan (03/10/2022 11:45 PM CDT): Dogs vaccines were up-to-date. It was the patient's own dog. Puncture wound of left hand without foreign body 03/10/2022 07/19/2024 Assessment & Plan (03/22/2022 6:37 PM CDT): Sutures removed today without difficulty. Still has Steri-Strips over the 5th finger. Assessment & Plan (03/10/2022 11:46 PM CDT): Patient is to complete antibiotics. Will leave stitches in place and return in about 10-11 days due to the location where there is a lot of movement. He is to monitor for any signs or symptoms of infection if that happens he is to follow up immediately. Encouraged him to keep the hand elevated he is to also apply ice 20 minutes on 20 minutes off throughout the day. Encouraged to call if he has any new symptoms or increased symptoms. 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 Groin pain, right 07/08/2019 03/24/2022 Assessment & Plan (07/08/2019 8:25 PM CDT): Check US groin for hernia. Reviewed s/s/warning signs for incarcerated bowel and testicular torsion. NSAIDs prn. Limit lifting. States he doesn't need a note for work. Need for immunization against influenza 07/08/2019 03/10/2022 Assessment & Plan (07/08/2019 8:25 PM CDT): Updated in office today BMI 26.0-26.9,adult 06/27/2019 07/23/20 Assessment & Plan (12/13/2022 10:20 PM CDT): Weight/BMI is in healthy range. Continue healthy lifestyle to maintain. Assessment & Plan (06/27/2019 11:45 AM CDT): Weight/BMI is in healthy range. Continue healthy lifestyle to maintain. Encounters Date Type Department Care Team Description 11/15/2024 Telephone [facility] Family Medicine [address] [address] Racheal Wilkerson PA Reminder to get labs done prior to next visit/needs appt re from Last 3 Months Immunizations Immunization Administration Dates Next Due Influenza, Quadrivalent, Spl it, Preservative Free, Intramuscular 06/27/2019 Influenza, Trivalent, Preser vative Free, Intramuscular 07/20/2024 Influenza, Unspecified 10/28/2022(Deferr ed: Patient Refused),10/28/2021(Deferred: Patient Refused),10/28/2021(Deferred: Patient Refused) Family History Medical History Relation Name Comments Hypertension Mother Relation Name Status Comments Mother Social History Tobacco Use Types Packs/Day Years Used Date Smoking Tobacco: Former Smokeless Tobacco: Never Tobacco Cessation:Counseling Given: Not Answered Alcohol Use Standard Drinks/Week Comments Yes 0 [...] on file 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 on file Not on file Not on file Obstetrics History Last Filed Vital Signs Vital Sign Reading Time Taken Comments Blood Pressure 132/84 07/20/2024 8:15 AM CDT Pulse 76 07/20/2024 8:15 AM CDT Temperature 36.7 C (98 F) 07/20/2024 8:15 AM CDT Respiratory Rate 16 07/20/2024 8:15 AM CDT Oxygen Saturation 99% 07/20/2024 8:15 AM CDT Inhaled Oxygen Concentration - - Weight 77.5 kg (170 lb 14.4 oz) 07/20/2024 8:15 AM CDT Height 177.8 cm (5' 10 ) 07/20/2024 8:15 AM CDT Body Mass Index 24.52 07/20/2024 8:15 AM CDT Plan of Treatment Health Maintenance Due Date Last Done Comments Albumin Creatinine Ratio, Urine 1980 Hepatitis C Screening 1980 Dilated Eye Exam 1980 Foot Exam 1980 Varicella Vaccines (1 of 2 - 13+ 2-dose series) 1993 Hepatitis B Screening 1998 Regular Well Visit/Exam 18-64 1998 Pneumococcal vaccine <65 (1 of 2 - PCV) 12/11/1999 Covid-19 Vaccine (3 - season) 2024 07/18/2021, 06/27/2021 DTaP/Tdap/Td Vaccine (2 - Td or Tdap) 12/17/2024 12/17/2014 Hemoglobin A1C 12/26/2024 06/27/2024 Lipid Panel 06/27/2025 06/27/2024 eGFR 06/27/2025 06/27/2024 Depression Screening 07/20/2025 07/20/2024, 05/28/2023, 12/07/2022, Additional history exists Influenza Vaccine Completed 07/20/2024, 06/27/2019 HPV Vaccines Aged Out No longer eligi ble based on patient's age to complete this topic Procedures Procedure Name Priority Date/Time Associated Diagnosis Comments COMPREHENSIVE METABOLIC PANEL Routine 06/27/2024 11:44 AM CDT Diarrhea, unspecified type Abdominal cramping Other fatigue HEMOGLOBIN A1C Routine 06/27/2024 11:44 AM CDT Diabetes mellitus screening LIPID PANEL Routine 06/27/2024 11:44 AM CDT Lipid screening from Last 3 Months or Most Recently Relevant to Health Maintenance Results * (ABNORMAL) Hemoglobin A1c (06/27/2024 11:44 AM CDT) Hgb A1C 7.1(H) <5.7 % of total Hgb [facility] Madrigal Comment: For someone without known diabetes, a hemoglobin A1c value of 6.5% or greater indicates that they may have diabetes and this should be confirmed with a follow-up test. For someone with known diabetes, a value <7% indicates that their diabetes is well controlled and a value greater than or equal to 7% indicates suboptimal control. A1c targets should be individualized based on duration of diabetes, age, comorbid conditions, and other considerations. Currently, no consensus exists regarding use of hemoglobin A1c for diagnosis of diabetes for children. Blood 06/27/2024 11:4 4 AM CDT 06/27/2024 11:45 AM CDT [facility] - 06/30/2024 3:41 AM CDT FASTING:NO COLLECTION KIT GIVEN TO PATIENT. PATIENT ADVISED TO RETURN. FASTING: NO Racheal MENA LAB BLOOD ORDERABLES Final Result [facility] Madrig[facility] [id number] [place] [address] * Lipid panel (06/27/2024 11:44 AM CDT) Cholesterol 171 <200 mg/dL [facility] HDL 60 > OR = 40 mg/dL [facility] Triglycerides 101 <150 mg/dL [facility] LDL 92 mg/dL (calc) Gamal [facility] Madrigal Comment: Reference range: <100 Desirable range <100 mg/dL for primary prevention; <70 mg/dL for patients with CHD or diabetic patients with > or = 2 CHD risk factors. LDL-C is now calculated using the Willow calculation, which is a validated novel method providing better accuracy than the Friedewald equation in the estimation of LDL-C. Narinder REVELES et al. SARAH. 2013;310(19): 4581-7698 (http://education.Biophotonic Solutions/faq/QLJ884) Chol/HDL ratio 2.9 <5.0 (calc) Gam[facility] Madriagl Non-HDL, (LDL+VLDL) 111 <130 mg/dL (calc) [facility] Mad[facility] Comment: For patients with diabetes plus 1 major ASCVD risk factor, treating to a non-HDL-C goal of <100 mg/dL (LDL-C of <70 mg/dL) is considered a therapeutic option. Blood 06/27/2024 11:4 4 AM CDT 06/27/2024 11:45 AM CDT Narrative [facility] - 06/30/2024 3:41 AM CDT FASTING:NO COLLECTION KIT GIVEN TO PATIENT. PATIENT ADVISED TO RETURN. FASTING: NO Racheal MENA LAB BLOOD ORDERABLES Final Result [facility] [address] [place] [address] * (ABNORMAL) Comprehensive metabolic panel (06/27/2024 11:44 AM CDT) [facility] Glucose 128 65 - 139 mg/dL Gamal Madrigal Comment: Non-fasting reference interval BUN 11 7 - 25 mg/dL Gam[facility] Madrig[facility] Creatinine 0.78 0.60 - 1.29 mg/dL Gamal [facility] Madrigal eGFR 113 > OR = 60 mL/min/1.7 3m2 Gamal [facility] Madrigal BUN/creat ratio SEE NOTE: (calc) Gamal [facility] Madrigal Comment: Not Reported: BUN and Creatinine are within reference range. Sodium 140 135 - 146 mmol/L Gamal [facility] Madrig[facility] Potassium, pl 3.8 3.5 - 5.3 mmol/L Gamal Madrigal Chloride 104 98 - 110 mmol/L [facility] CO2 30 20 - 32 mmol/L [facility] Calcium 9.6 8.6 - 10.3 mg/dL [facility] Protein, sr 6.2 6.1 - 8.1 g/dL [facility] Albumin 4.4 3.6 - 5.1 g/dL [facility] GLOBULIN 1.8(L) 1.9 - 3.7 g/dL (calc) [facility] Alb/glob ratio 2.4 1.0 - 2.5 (calc) [facility] Bilirubin, total 0.6 0.2 - 1.2 mg/dL [facility] Alk phos 39 36 - 130 U/L [facility] AST 19 10 - 40 U/L [facility] ALT (SGPT) 16 9 - 46 U/L [facility] Madrigal Blood 06/27/2024 11:4 4 AM CDT 06/27/2024 11:45 AM CDT Narrative [facility] - 06/30/2024 3:41 AM CDT FASTING:NO COLLECTION KIT GIVEN TO PATIENT. PATIENT ADVISED TO RETURN. FASTING: NO Racheal MENA LAB BLOOD ORDERABLES Final Result G[facility] [address] [place] [address] from Last 3 Months or Most Recently Relevant to Health Maintenance Insurance [facility] Care Teams Network Control Operators Supervisor Relationship Specialty Start Date End Date Racheal Wilkerson PA [address] [facility] [address] [place], [place] [id number] PCP - General Internal Medicine 07/25/19
--- OUTSIDE RECORDS SUMMARY | 2024-12-01 22:56 | XMS_ITS | Referral Summary ---
Author Organization [facility] [address] [facility] Address [address] [place] [address] Care Team Providers Care Weigh Boss Name Role Phone Racheal Wilkerson Primary Care Provider +1- [phone] Encounters Date Type Department Care Team Description 11/15/2024 Telephone [facility] Family Medicine [address] [facility] [address] [place] [address] Racheal Wilkerson PA Reminder to get labs done prior to next visit/needs appt re from Last 3 Months Allergies No known active allergies Medications multivitamin [...] Discussed with patient at length diabetes, pathogenesis, intermodal dispatcher sequela, end organ damage, diet/exercise/weight loss, and [...] feet on a regular basis to avoid shelter problems. Offered referral to human resources benefits assistant. Discussed medication options including the risks benefits [...] by Dr. staples at [facility]. He has tolerated the procedure well. No [...] healthy range. Continue healthy lifestyle to maintain. 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 PATIENT ADVISED TO RETURN. FASTING: NO Racheal MENA LAB BLOOD ORDERABLES Final Result [facility] [address] [place] [address] * Lipid panel (06/27/2024 11:44 AM CDT) Pathologist [facility] Cholesterol 171 <200 mg/dL [facility] HDL 60 > OR = 40 mg/dL [facility] Triglycerides 101 <150 mg/dL [facility] LDL 92 mg/dL (calc) [facility] Comment: Reference range: <100 Desirable range <100 mg/dL for primary prevention; <70 mg/dL for patients with CHD or diabetic patients with > or = 2 CHD risk factors. LDL-C is now calculated using the Narinder-Brittney calculation, which is a validated novel method providing better accuracy than the Friedewald equation in the estimation of LDL-C. Narinder SS et al. SARAH. 2013;310(19): 8159-9734 (http://education.TrueLens.Orange [employer] Solutions/faq/CQI622) Chol/HDL ratio 2.9 <5.0 (calc) [facility] odonnell Rohan Non-HDL, (LDL+VLDL) 111 <130 mg/dL (calc) [facility] Rohan Comment: For patients with diabetes plus 1 [...] MENA LAB BLOOD ORDERABLES Final Result GAMAL Gamal [facility]La Madrig[facility] [address] [place] [address] * (ABNORMAL) Comprehensive metabolic panel (06/27/2024 11:44 AM CDT) Glucose 128 65 - 139 mg/dL [facility] Comment: Non-fasting reference interval BUN 11 7 - 25 mg/dL Gam[facility] Creatinine 0.78 0.60 - 1.29 mg/dL Gam[facility] eGFR 113 > OR = 60 mL/min/1.7 3m2 [facility] Madrig[facility] BUN/creat ratio SEE NOTE: 6 - 22 (calc) [facility] Comment: Not Reported: BUN and Creatinine are within reference range. Sodium 140 135 - 146 mmol/L Gamal [employer] Potassium, pl 3.8 3.5 - 5.3 mmol/L [facility] Chloride 104 98 - 110 mmol/L [facility] CO2 30 20 - 32 mmol/L [facility] Calcium 9.6 8.6 - 10.3 mg/dL [facility] Protein, sr 6.2 6.1 - 8.1 g/dL [facility] Albumin 4.4 3.6 - 5.1 g/dL [facility] GLOBULIN 1.8(L) 1.9 - 3.7 g/dL (calc) [facility] Alb/glob ratio 2.4 1.0 - 2.5 (calc) [facility] Bilirubin, total 0.6 0.2 - 1.2 mg/dL [facility] Alk phos 39 36 - 130 U/L [facility] AST 19 10 - 40 U/L [facility] ALT (SGPT) 16 9 - 46 U/L [facility] Blood 06/27/2024 11:4 4 AM CDT 06/27/2024 11:45 AM CDT Narrative [facility] - 06/30/2024 3:41 AM CDT FASTING:NO COLLECTION KIT GIVEN TO PATIENT. PATIENT ADVISED TO RETURN. FASTING: NO Racheal MENA LAB BLOOD ORDERABLES Final Result [facility] [address] [place] [address] from Last 3 Months or Most Recently Relevant to Health Maintenance Insurance [employer] [place] [facility] [employer] [place] Care Teams Weigh Boss Relationship Specialty Start Date End Date Racheal Wilkerson PA [address] [facility] [address] [place] [address] PCP - General Internal Medicine 07/25/19
--- OUTSIDE RECORDS SUMMARY | 2024-12-01 22:56 | XMS_ITS | Clinical Summary ---
Author Organization [facility] Address [address] [facility] [address] [place] [address] Phone Care Team Providers Care Cake Puncher Name Role Phone Unavailable Primary Care Provider Unavailabl e Social History Tobacco Use Types Packs/Day Years Used Date Smoking Tobacco: Never Assessed Sex and Gender Information Value Date Recorded Sex Assigned at Not on file Legal Sex Male 8:20 AM CDT Gender Identity Not on file Sexual Orientation Not on file Plan of Treatment Health Maintenance Due Date Last Done Comments Hepatitis C Virus (HCV) Screening 1980 TdaP Immunization 1980 Hepatitis B Immunization (1 of 3 - 19+ 3-dose series) 12/11/1999 Influenza Immunization (#1) 2024 SARS-COV-2 Immunization ( season) 2024 Respiratory Syncytial Virus (RSV) Immunization (Adult) (1 - 1-dose 75+ series) 12/11/2055 Meningococcal Immunization (ACWY) Aged Out No longer eligible based on patient's age to complete this topic Pneumococcal Immunization Combined Aged Out No longer eligible based on patient's age to complete this topic Rotavirus Immunization Aged Out No lo nger eligible based on patient's age to complete this topic
--- OUTSIDE RECORDS SUMMARY | 2024-12-01 22:56 | XMS_ITS | Referral Summary ---
Author Organization [facility] [employer] Address [address] [place] [address] Care Team Providers Care Break Out Man Name Role Phone Racheal Wilkerson PA-C Primary Care Provider [phone] [phone] Source Comments [facility],non-owned Affiliates and Associated Physician Practices is amultiple site organization consisting of ambulatory clinics and hospital sitesin [place], [place], [place] and [place]. This disclosure is being madepursuant to the Care Everywhere program and may not contain all information available regarding this patient. Last updated 18.[facility] [employer] Allergies No known active allergies Medications * Be aware that medications may not be up to date on this document. Alwaysverify current medications with the patient. Medication Sig Dispensed Refills Start Date End Date Status Loratadine (CLARITIN PO) Active multivitamins (ONE A DAY) capsule Take 1 capsule by mouth once daily Active Oicjrt-Fexqhhcjv-Grfd uron-MSM (GLUCOSAMINE CHONDROITIN JOINT PO) Act felicitas fluticasone propionate (FLONASE) 50 MCG/ACT nasal sprayIndications:Acut e non-recurrent sinusitis of other sinus [place] 2 sprays into each nostril once daily 1 bottles 04/20/2019 Active Social History Tobacco Use Types Packs/Day Years [...] 04/20/2019 3:39 PM CDT Plan of Treatment Not on file Care Teams Break Out Man Relationship Specialty Start Date End Date Racheal Wilkerson PA-C PCP - General Physician Direct Customer Service Representative 04/24/18
--- NOTE | 2024-12-02 00:30 | PC.NURSE ---
Pt called x1 w no answer.
--- NOTE | 2024-12-02 00:36 | PC.NURSE ---
Pt called x2 w no response. Pt marked as LWBS.
--- OUTSIDE RECORDS SUMMARY | 2024-12-02 00:41 | XMS_ITS | Clinical Summary ---
Author Organization [facility] Address [address] [place] [address] Care Team Providers Care Success Coach Name Role Phone Racheal Wilkerson PA-C Primary Care Provider [phone] [phone] Source Comments [facility],non-owned Affiliates and Associated Physician Practices is amultiple site organization consisting of ambulatory clinics and hospital sitesin [place], [place] and [place]. This disclosure is being madepursuant to the Care Everywhere program and may not contain all information available regarding this patient. Last updated 18.[facility] Allergies No known active allergies Medications * Be aware that medications may not be up to date on this document. Alwaysverify current medications with the patient. Medication Sig Dispensed Refills Start Date End Date Status Loratadine (CLARITIN PO) Active multivitamins (ONE A DAY) capsule Take 1 capsule by mouth once daily Active Lnevbp-Kmijgahfk-Senf uron-MSM (GLUCOSAMINE CHONDROITIN JOINT PO) Act felicitas fluticasone propionate (FLONASE) 50 MCG/ACT nasal sprayIndications:Acut e non-recurrent sinusitis of other sinus [place] 2 sprays into each nostril once daily [...] age to complete this topic Care Teams Success Coach Relationship Specialty Start Date End Date Racheal Wilkerson PA-C PCP - General Physician Oral And Maxillofacial Pathologist 04/24/18
--- OUTSIDE RECORDS SUMMARY | 2024-12-02 00:41 | XMS_ITS | Clinical Summary ---
Author Organization [facility] Address [address] [address] Phone Care Team Providers Care Silver Spray Worker Name Role Phone Unavailable Primary Care Provider [...]
--- OUTSIDE RECORDS SUMMARY | 2024-12-02 00:41 | XMS_ITS | Patient Health Summary ---
Author Organization [facility] Address [address] [place] [address] Care Team Providers Care Data Warehouse Architect Name Role Phone Racheal Wilkerson PA-C Primary Care Provider [phone] [phone] Note from [facility],non-owned Affiliates and Associated Physician Practices is amultiple site organization consisting of ambulatory clinics and hospital sitesin [place], [place], [place] and [place]. This disclosure is being madepursuant to the Care Everywhere program and may not contain all information available regarding this patient. Last updated 18.[facility] Allergies No known active allergies Medications * Be aware that medications may not be up to date on this document. Alwaysverify current medications with the patient. * Loratadine (CLARITIN PO) * multivitamins (ONE A DAY) capsule Take 1 capsule by mouth once daily * Xidhlg-Ttrkfgrhy-Dajiviqf-MSM (GLUCOSAMINE CHONDROITIN JOINT PO) * fluticasone propionate (FLONASE) 50 MCG/ACT nasal spray(Started 04/20/2019) [place] 2 sprays into each nostril once daily [...] Strep A Internal Control Present Lot # [id number] Expiration Date 09/26/2020 Throat ENTIRE THROAT (SURFACE REGION OF NECK) / Unknown 04/20/2019 3:58 PM CDT Kasey Anderson TANKROOM WORKER-NEWSPAPER DELIVERY COUNSELOR LAB - POIN T OF CARE ORDERABLES Care Teams Data Warehouse Architect Relationship Specialty Start Date End Date Racheal Wilkerson, NITISHC PCP - General Physician Installer Apprentice 04/24/18
--- OUTSIDE RECORDS SUMMARY | 2024-12-02 00:41 | XMS_ITS | Referral Summary ---
Author Organization [facility] Address [address] [place] [address] Care Team Providers Care Quarry Equipment Operator Name Role Phone Racheal Wilkerson PA-C Primary Care Provider [phone] [phone] Source Comments [facility],non-owned Affiliates and Associated Physician Practices is amultiple site organization consisting of ambulatory clinics and hospital sitesin [place], [place], [place] and [place]. This disclosure is being madepursuant to the Care Everywhere program and may not contain all information available regarding this patient. Last updated 18.[facility] Allergies No known active allergies Medications * Be aware that medications may not be up to date on this document. Alwaysverify current medications with the patient. Medication Sig Dispensed Refills Start Date End Date Status Loratadine (CLARITIN PO) Active multivitamins (ONE A DAY) capsule Take 1 capsule by mouth once daily Active Ofsxld-Vszoppnnd-Ovow uron-MSM (GLUCOSAMINE CHONDROITIN JOINT PO) Act felicitas fluticasone propionate (FLONASE) 50 MCG/ACT nasal sprayIndications:Acut e non-recurrent sinusitis of other sinus [place] 2 sprays into each nostril once daily [...] of Treatment Not on file Care Teams Quarry Equipment Operator Relationship Specialty Start Date End Date Racheal Wilkerson PA-C PCP - General Physician Swimmer 04/24/18
--- OUTSIDE RECORDS SUMMARY | 2024-12-02 00:41 | XMS_ITS | Referral Summary ---
Author Organization [facility] [address] [facility] Address [address] [place] [address] Care Team Providers Care Neurodiagnostic Tech Name Role Phone Racheal Wilkerson Primary Care Provider [phone]- [phone] Encounters Date Type Department Care Team Description 11/15/2024 Telephone [facility] Family Medicine [address] [facility] [address] [place] [address] Racheal Wilkerson PA Reminder to [...] Discussed with patient at length diabetes, pathogenesis, medical terminologist sequela, end organ damage, diet/exercise/weight loss, and [...] feet on a regular basis to avoid chcf problems. Offered referral to rough rib grader. Discussed medication options including the risks benefits [...] post lap appendectomy by Dr. staples at [facility]. He has tolerated the procedure well. 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 Not on file Not [...] A1C 7.1(H) <5.7 % of total Hgb [facility] Comment: For someone without known [...] AM CDT 06/27/2024 11:45 AM CDT Narrative [facility] - 06/30/2024 3:41 AM CDT FASTING:NO COLLECTION KIT GIVEN TO PATIENT. PATIENT ADVISED TO RETURN. FASTING: NO Racheal MENA LAB BLOOD ORDERABLES Final Result [facility] [address] [place] [address] * Lipid panel (06/27/2024 11:44 AM CDT) Pathologist [facility] Cholesterol 171 <200 mg/dL [facility] HDL 60 > OR = 40 mg/dL [facility] Triglycerides 101 <150 mg/dL [facility] LDL 92 mg/dL (calc) [facility] Comment: Reference range: <100 Desirable range <100 mg/dL for primary prevention; <70 mg/dL for patients with CHD or diabetic patients with > or = 2 CHD risk factors. LDL-C is now calculated using the Narinder-Brittney calculation, which is a validated novel method providing better accuracy than the Friedewald equation in the estimation of LDL-C. Narinder SS et al. SARAH. 2013;310(19): 1332-2808 (http://education.RoughHands.Yamli/faq/LZO736) Chol/HDL ratio 2.9 <5.0 (calc) [facility] Non-HDL, (LDL+VLDL) 111 <130 mg/dL (calc) [facility] Comment: For patients with diabetes [...] LAB BLOOD ORDERABLES Final Result [facility] [address] [place] [address] * (ABNORMAL) Comprehensive metabolic panel (06/27/2024 11:44 AM CDT) Glucose 128 65 - 139 mg/dL [facility] Comment: Non-fasting reference interval BUN 11 7 - 25 mg/dL [facility] Creatinine 0.78 0.60 - 1.29 mg/dL [facility] eGFR 113 > OR = 60 mL/min/1.7 3m2 [facility] BUN/creat ratio SEE NOTE: 6 - 22 (calc) [facility] Comment: Not Reported: BUN and Creatinine are within reference range. Sodium 140 135 - 146 mmol/L [facility] Potassium, pl 3.8 3.5 - [...] Alb/glob ratio 2.4 1.0 - 2.5 (calc) [facility] Bilirubin, total 0.6 0.2 - 1.2 mg/dL [facility] Alk phos 39 36 - 130 U/L [facility] AST 19 10 - 40 U/L [facility] ALT (SGPT) 16 9 - 46 U/L [facility] Blood 06/27/2024 11:4 4 AM CDT 06/27/2024 11:45 AM CDT Narrative [facility] - 06/30/2024 3:41 AM CDT FASTING:NO COLLECTION KIT GIVEN TO PATIENT. PATIENT ADVISED TO RETURN. FASTING: NO Racheal MENA LAB BLOOD ORDERABLES Final Result [facility] [address] [place] [address] from Last 3 Months or Most Recently Relevant to Health Maintenance Insurance OLED-T PR [facility] [employer]LED[employer]T PR Care Teams Neurodiagnostic Tech Relationship Specialty Start Date End Date Racheal Wilkerson PA [address] [facility] [address] [place] [address] PCP - General Internal Medicine 07/25/19
--- OUTSIDE RECORDS SUMMARY | 2024-12-02 00:41 | XMS_ITS | Clinical Summary ---
Author Organization [facility] [address] [facility] Address [address] [place] [address] Care Team Providers Care Hotel Concierge Name Role Phone Racheal Wilkerson Primary Care Provider [phone]- [phone] Allergies No known active allergies Medications multivitamin [...] Discussed with patient at length diabetes, pathogenesis, residential sequela, end organ damage, diet/exercise/weight loss, and [...] feet on a regular basis to avoid residential problems. Offered referral to coding educator. Discussed medication options including the risks benefits [...] post lap appendectomy by Dr. staples at [facility]. 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 PATIENT ADVISED TO RETURN. FASTING: NO Racheal MENA LAB BLOOD ORDERABLES Final Result [facility] [address] [place] [address] * Lipid panel (06/27/2024 11:44 AM CDT) Cholesterol 171 <200 mg/dL [facility] HDL 60 > OR = 40 mg/dL [facility] Triglycerides 101 <150 mg/dL [facility] LDL 92 mg/dL (calc) [facility] Comment: Reference range: <100 Desirable range <100 mg/dL for primary prevention; <70 mg/dL for patients with CHD or diabetic patients with > or = 2 CHD risk factors. LDL-C is now calculated using the Willow calculation, which is a validated novel method providing better accuracy than the Friedewald equation in the estimation of LDL-C. Narinder REVELES et al. SARAH. 2013;310(19): 0763-4677 (http://education.BehavioSec/faq/UMO605) Chol/HDL ratio 2.9 <5.0 (calc) [facility] Non-HDL, (LDL+VLDL) 111 <130 mg/dL (calc) [facility] Comment: For patients with diabetes plus [...] MENA LAB BLOOD ORDERABLES Final Result [facility] [address] [place] [address] * (ABNORMAL) Comprehensive metabolic panel (06/27/2024 11:44 AM CDT) [facility] Glucose 128 65 - 139 mg/dL [facility] Comment: Non-fasting reference interval BUN 11 7 - 25 mg/dL [facility] Creatinine 0.78 0.60 - 1.29 mg/dL [facility] eGFR 113 > OR = 60 mL/min/1.7 3m2 [facility] BUN/creat ratio SEE NOTE: (calc) [facility] Comment: Not Reported: BUN and Creatinine are within reference range. Sodium 140 135 - 146 mmol/L [facility] Potassium, pl 3.8 3.5 - 5.3 [...] ALT (SGPT) 16 9 - 46 U/L [facility] Blood 06/27/2024 11:4 4 AM CDT 06/27/2024 11:45 AM CDT Narrative [facility] - 06/30/2024 3:41 AM CDT FASTING:NO COLLECTION KIT GIVEN TO PATIENT. PATIENT ADVISED TO RETURN. FASTING: NO Racheal MENA LAB BLOOD ORDERABLES Final Result [facility] [address] [place] [address] from Last 3 Months or Most Recently Relevant to Health Maintenance Insurance [facility] Care Teams Hotel Concierge Relationship Specialty Start Date End Date Racheal Wilkerson PA [address] [facility] [address] [place], [place] [id number] PCP - General Internal Medicine 07/25/19
== END 2024-12-02 00:36 | disposition left against medical advice (07) ==
PROVIDERS: PCP Physician Assistant
DX: M54.2 Cervicalgia (principal)
CPT/HCPCS: 99199

== ENCOUNTER 2024-12-02 08:05 | Emergency (ER) | payer BC, SELFPAY ==
--- NOTE | 2024-12-02 08:12 | ED_ITS ---
HPI - Extremity Injury (Upper) General Chief Complaint: Neck Pain/Injury Stated Complaint: right shoulder,neck,arm pain Time Seen by Provider: 12/02/24 08:16 Source: patient, RN notes reviewed and old records reviewed Mode of arrival: ambulatory Limitations: no limitations History of Present Illness HPI narrative: 43-year-old male presents to the [facility] with right shoulder, right lateral neck radiating down his arm to his elbow. No known injury, States that he does lift a lot of heavy boxes at work. Symptoms started yesterday. Reports history of the same symptoms in the past. States he normally sees a chiropractor. Has a chiropractor appointment on Wednesday. Requesting a work note Used topical products and Ibuprofen with no relief. Onset (ago): day(s) Treatments prior to arrival: NSAIDS and other (topicals) Related Data Home Medications ?Medication ?Instructions ?Recorded ?Confirmed ?Last Taken ?Type lisinopril 2.5 mg tablet 2.5 mg PO DAILY 12/02/24 12/02/24 Unknown History rosuvastatin 5 mg tablet 5 mg PO DAILY 12/02/24 12/02/24 Unknown History Allergies Allergy/AdvReac Type Severity Reaction Status Date / Time No Known Allergies Allergy Verified 12/02/24 08:11 Review of Systems Review of Systems: All systems reviewed & are unremarkable except as noted in HPI and below Constitutional: Constitutional: Reports no additional constitutional complaints ENT: Reports system reviewed and no additional complaints, except as documented Cardiovascular: Cardiovascular: Reports no additional cardiovascular complaints, Denies chest pain and Denies dyspnea Respiratory: Respiratory: Reports no additional respiratory complaints, Denies chest congestion, Denies cough and Denies dyspnea Musculoskeletal: Musculoskeletal: Reports as per HPI, Denies deformity, Reports arthralgias, Denies joint swelling, Denies muscle weakness, Reports neck pain and Denies numbness Integumentary/Breasts: Skin/Breast: Reports system reviewed and no additional complaints, except as docu [facility] Past Medical History Medical History (Updated 12/02/24 @ 08:31 by Mag Garsia APRN) History of high cholesterol History of high blood pressure Dog bite, hand Surgical History Surgical History History of laparoscopic appendectomy 03/18/22 Social History Social History Smoking status: Never smoker Alcohol intake: current Alcohol use details: occasional Substance use: never Gender identity (if verbalized by the patient): Male Comments At the time of my signature, I reviewed and agree with the nursing past medical, surgical, social, and family history. There is no relevant family history pertinent to the patient complaint. Exam Const: General: cooperative, healthy appearing, comfortable, no acute distress, well developed, alert and well nourished Nutritional Appearance: well nourished Orientation/consciousness: patient oriented x3 Limitations: no limitations HENMT: Head: normal to inspection Eyes: General: appearance normal, both eyes and all related structures Alignment and Position: alignment normal Neck: Neck: normal visual inspection, full ROM, no lymphadenopathy and no meningeal signs Chest: Chest palpation & inspection: normal inspection of the chest Resp: Effort & Inspection: normal respiratory effort and able to speak in complete sentences Cardio: Rate: regular rate Skin: General skin exam: normal color and no rashes or lesions noted Neuro: General: patient oriented x3, gait normal, moves all extremities and no meningeal signs Cognition (Neuro): normal cognition Speech: normal speech Gait exam (Neuro): Normal gait present Motor exam (neuro): 5/5 motor strength present throughout, Pronator motor function not present and Motor abnormalities not present Extrem: General: normal to inspection, full ROM, capillary refill normal and normal gait Right upper extremity: normal to inspection, full ROM, normal capillary refill, shoulder/upper arm normal ROM; no abrasions, no lacerations, no ecchymosis, no crepitus, no foreign bodies and no penetrating wound, elbow/forearm normal to inspection and normal ROM; no tenderness, no swelling and no ecchymosis, wrist normal to inspection, normal ROM and radial pulse present; no tenderness and no swelling and Extremity exam: right hand normal capillary refill and neuromotor exam normal wrist extension normal, thumb opposition normal, thumb IP flexion normal, thumb ADduction normal and fingers 2-5 ABduction normal Psych: Appearance: grossly normal and well kempt Mental Status: mental status grossly normal Speech and movement: Normal speech and movement present and Clear speech present Affect: normal affect Attitude: cooperative Course Course Level of Care: Express Care Visit Vital Signs Vital signs: Vital Signs Temperature 96.7 F L 12/02/24 08:15 Pulse Rate 76 12/02/24 08:15 Respiratory Rate 16 12/02/24 08:15 Blood Pressure 123/76 12/02/24 08:15 Pulse Oximetry 99 12/02/24 08:15 Oxygen Delivery Room Air 12/02/24 08:15 Temperature 96.7 F L 12/02/24 08:15 Pulse Rate 76 12/02/24 08:15 Respiratory Rate 16 12/02/24 08:15 Blood Pressure 123/76 12/02/24 08:15 Pulse Oximetry 99 12/02/24 08:15 Oxygen Delivery Room Air 12/02/24 08:15 Reviewed MDM - Extremity Injury (Upper) MDM Narrative Medical decision making narrative: Patient sitting comfortably in exam room. Nontoxic, vitals stable. Patient is in no acute distress. Patient presents with 1 day history of right lateral neck pain radiating into the shoulder and to the elbow. Denies any injury. History of the same. Has an appointment with a chiropractor on Wednesday No acute findings noted on exam. Full range of motion of the neck, elbow, shoulder and wrist. No midline tenderness. Differential Diagnosis Differential diagnosis: Likely other (Cervical strain, cervical radiculopathy, muscle strain, degenerative disc, bulging disc) Critical Care Time Critical Care Time Critical Care Time: No Discharge Plan Discharge Clinical Impression: Cervical radiculopathy Strain of neck muscle Qualifiers: Encounter type: initial encounter Qualified Code(s): S16.1XXA - Strain of muscle, fascia and tendon at neck level, initial encounter Patient Disposition: Home, Self-Care Condition: Stable Instructions: Antibiotic Form, Cervical Radiculopathy (ED) Additional Instructions: Take ibuprofen as directed to decrease inflammation and to help pain. Take Baclofen (muscle relaxer) as directed. Do not drink, drive, operate machinery, or do anything dangerous while taking this medication Exercise:Combine aerobic exercise, like walking or swimming, with specific exercises to keep the muscles in your back and abdomen strong and flexible. Proper Lifting:Be sure to lift heavy items with your legs, not your back. Do not bend over to pick something up. Keep your back straight and bend at your knees. Weight:Maintain a healthy weight. Being overweight puts added stress on your lower back. Avoid Smoking:Both the smoke and the nicotine cause your spine to age faster than normal. Proper Posture:Good posture is important for avoiding future problems. A therapist can teach you how to safely stand, sit, and lift. Use warm moist heat to help with pain. Using topical such as Biofreeze, Soham-Kim or Aspercreme can also help Follow up with Primary provider in 2-3 days, This may become a chronic condition and they will be the one to help manage your pain and order additional testing. Go to the nearest ER if you develop problems with bladder/bowel function, weakness or loss of feeling in one or both of your legs. Patient Language: Senegalese Prescriptions: New baclofen 10 mg tablet 10 mg PO TID PRN (Reason: muscle pain) Qty: 10 0RF ibuprofen 600 mg tablet 600 mg PO TID PRN (Reason: fever or pain) Qty: 30 0RF No Action lisinopril 2.5 mg tablet 2.5 mg PO DAILY rosuvastatin 5 mg tablet 5 mg PO DAILY Follow-up/Referrals: Rock,TRINA Springer [Primary Care Provider] - 1 Week ([facility] follow-up) Stand Alone Forms: Work/School Release IP Time of Disposition: 08:25
[2024-12-02 08:15] VITALS: BP 123/76; PULSE 76; RESP 16; TEMP 35.9; O2SAT 99
== END 2024-12-02 08:34 | disposition home or self-care (01) ==
PROVIDERS: Emergency Provider Nurse Practitioner; PCP Physician Assistant
DX: M54.12 Radiculopathy, cervical region (principal); S16.1XXA Strain of muscle, fascia and tendon at neck level, initial encounter; Z79.899 Other long term (current) drug therapy; X50.0XXA Overexertion from strenuous movement or load, initial encounter; Y99.0 Civilian activity done for income or pay
CPT/HCPCS: 99213; G0463

== ENCOUNTER 2024-12-21 07:56 | Emergency (ER) | payer BC, SELFPAY ==
[2024-12-21 07:59] VITALS: BP 152/90; PULSE 82; RESP 18; TEMP 36.4; O2SAT 100
--- OUTSIDE RECORDS SUMMARY | 2024-12-21 08:01 | XMS_ITS | Referral Summary ---
Author Organization [address] Address [address] [place] [phone] Care Team Providers Care Building Architect Name Role Phone Racheal Wilkerson Primary Care Provider +1- [phone] Encounters Date Type Department Care Team Description 12/19/2024 Results Follow-Up [address] [place] [phone] Racheal Wilkerson PA 12/11/2024 11:00 AM CDT Office Visit [address] [place] [phone] Racheal Wilkerson PA 12/06/2024 Orders Only [address] [place] [phone] Racheal Wilkerson PA Neck pain (Primary Dx); Acute pain of right shoulder; Right elbow pain 12/06/2024 Nurse Triage [address] [place] [phone] Azeem Rice RN 11/15/[address] [place] [phone] Racheal Wilkerson PA Reminder to get [...] mouth daily 90 tablet 1 07/20/2024 Active gabapentin (NEURONTIN) 300 mg capsule Take 1 capsule (300 mg total) by mouth 3 (three) times a day 90 capsule 1 12/11/2024 Active Active Problems Problem Noted Date Diagnosed Date Elevated MCV 07/23/2024 Assessment & Plan (07/23/2024 11:12 PM CDT): Check labs Controlled type 2 diabetes seth olivarez without complication, without long-term current use of insulin 07/23/2024 Assessment & Plan (07/23/2024 11:13 PM CDT): New Diagnosis Diabetes. Discussed with patient at length diabetes, pathogenesis, snf sequela, end organ damage, diet/exercise/weight loss, and [...] feet on a regular basis to avoid snf problems. Offered referral to user interface artist. Discussed medication options including the risks benefits [...] post lap appendectomy by Dr. staples at [facility]. He has tolerated the procedure well. No [...] in office today BMI 26.0-26.9,adult 06/27/2019 07/23/20 24 Assessment & Plan (12/13/2022 10:20 PM CDT): [...] drink containing alc ohol? Monthly or less 12/11/2024 Q2: How many drinks containi ng alcohol do you have on a typical day when you are drinking? 1 or 2 12/11/2024 Q3: How often do you have si x or more drinks on one occasion? 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 Not on file Not on file Last Filed Vital Signs Vital Sign Reading Time Taken Comments Blood Pressure 134/100 12/11/2024 11:14 AM CDT Pulse 70 12/11/2024 11:14 AM CDT Temperature 36.6 C (97.8 F) 12/11/2024 11:14 AM CDT Respiratory Rate 16 07/20/2024 8:15 AM CDT Oxygen Saturation 99% 12/11/2024 11:14 AM CDT Inhaled Oxygen Concentration - - Weight 76.2 kg (168 lb) 12/11/2024 11:14 AM CDT Height 177.8 cm (5' 10 ) 12/11/2024 11:14 AM CDT Body Mass Index 24.11 12/11/2024 11:14 AM CDT Plan of Treatment Not on file Procedures Procedure Name Priority Date/Time Associated Diagnosis Comments VITAMIN B12 Routine 12/18/2024 10:37 AM CDT Elevated MCV LIPID PANEL Routine 12/18/2024 10:37 AM CDT Controlled type 2 diabetes mellitus without complication, without long-term current use of insulin (HCC) HEMOGLOBIN A1C Routine 12/18/2024 10:37 AM CDT Controlled type 2 diabetes mellitus without complication, without long-term current use of insulin (HCC) COMPREHENSIVE METABOLIC PANEL Routine 12/18/2024 10:37 AM CDT Controlled type 2 diabetes mellitus without complication, without long-term current use of insulin (HCC) ALBUMIN CREATININE RATIO, URINE Routine 12/18/2024 10:37 AM CDT Controlled type 2 diabetes mellitus without complication, without long-term current use of insulin (HCC) from Last 3 Months Results * Albumin Creatinine Ratio, Urine (12/18/2024 10:37 AM CDT) Creatinine, ur 61 20 - 320 mg/dL [facility] Microalbumin, ur 0.4 See Note: mg/dL [facility] Comment: Reference Range: Reference Range Not established Microalbumin/creat ratio 7 <30 mg/g creat [facility] Comment: The ADA defines abnormalities in albumin excretion as follows: Albuminuria Category Result (mg/g creatinine) Normal to Mildly increased <30 Moderately increased 30-299 Severely increased > OR = 300 The ADA recommends that at least two of three specimens collected within a 3-6 month period be abnormal before considering a patient to be within a diagnostic category. Urine 12/18/2024 10:3 7 AM CDT 12/18/2024 10:37 AM CDT Narrative [facility] - 12/19/2024 6:53 AM CDT FASTING:NO FASTING: NO Racheal MENA LAB URINE ORDERABLES Final Result [facility] [address] [place] [address] * (ABNORMAL) Hemoglobin A1c (12/18/2024 10:37 AM CDT) Hgb A1C 5.8(H) <5.7 % of total Hgb [facility] Comment: For someone without known diabetes, a hemoglobin A1c value between 5.7% and 6.4% is consistent with prediabetes and should be confirmed with a follow-up test. For someone with known diabetes, a value <7% indicates that their diabetes is well controlled. A1c targets should be individualized based on duration of diabetes, age, comorbid conditions, and other considerations. This assay result is consistent with an increased risk of diabetes. Currently, no consensus exists regarding use of hemoglobin A1c for diagnosis of diabetes for children. Blood 12/18/2024 10:3 7 AM CDT 12/18/2024 10:37 AM CDT Narrative [facility] - 12/19/2024 6:53 AM CDT FASTING:NO FASTING: NO Racheal MENA LAB BLOOD ORDERABLES Final Result Performing Organization Address City/[facility]/ZIP Co de Phone Number [facility] [address] [place] [address] * Vitamin B12 (12/18/2024 10:37 AM CDT) [facility] Vitamin B12 549 200 - 1,100 pg/mL [facility] Blood 12/18/2024 10:3 7 AM CDT 12/18/2024 10:37 AM CDT Narrative [facility] - 12/19/2024 6:53 AM CDT FASTING:NO FASTING: NO Racheal MENA LAB BLOOD ORDERABLES Final Result [facility] [address] [place] [address] * Lipid panel (12/18/2024 10:37 AM CDT) [facility] Cholesterol 154 <200 mg/dL [facility] HDL 57 > OR = 40 mg/dL [facility] Triglycerides 70 <150 mg/dL [facility] LDL 82 mg/dL (calc) [facility] Comment: Reference range: <100 Desirable range <100 mg/dL for primary prevention; <70 mg/dL for patients with CHD or diabetic patients with > or = 2 CHD risk factors. LDL-C is now calculated using the Willow calculation, which is a validated novel method providing better accuracy than the Friedewald equation in the estimation of LDL-C. Narinder REVELES et al. SARAH. 2013;310(19): 2812-7510 (http://education.inmobly/faq/IGB722) Chol/HDL ratio 2.7 <5.0 (calc) [facility] Non-HDL, (LDL+VLDL) 97 <130 mg/dL (calc) [facility] Comment: For patients with diabetes plus 1 major ASCVD risk factor, treating to a non-HDL-C goal of <100 mg/dL (LDL-C of <70 mg/dL) is considered a therapeutic option. Blood 12/18/2024 10:3 7 AM CDT 12/18/2024 10:37 AM CDT Narrative [facility] - 12/19/2024 6:53 AM CDT FASTING:NO FASTING: NO Racheal MENA LAB BLOOD ORDERABLES Final Result NAT [facility] [address] [place] [address] * Comprehensive metabolic panel (12/18/2024 10:37 AM CDT) [facility] Glucose 91 65 - 139 mg/dL Nat [facility] Comment: Non-fasting reference interval BUN 19 7 - 25 mg/dL [facility] Creatinine 0.85 0.60 - 1.29 mg/dL Nat [facility] eGFR 110 > OR = 60 mL/min/1.7 3m2 [facility] BUN/creat ratio SEE NOTE: (calc) Nat [facility] Comment: Not Reported: BUN and Creatinine are within reference range. Sodium 139 135 - 146 mmol/L [facility] Potassium, pl 5.0 3.5 - 5.3 mmol/L [facility] Chloride 103 98 - 110 mmol/L [facility] CO2 27 20 - 32 mmol/L [facility] Calcium 9.9 8.6 - 10.3 mg/dL [facility] Protein, sr 7.2 6.1 - 8.1 g/dL [facility] Albumin 5.1 3.6 - 5.1 g/dL [facility] GLOBULIN 2.1 1.9 - 3.7 g/dL (calc) [facility] Alb/glob ratio 2.4 1.0 - 2.5 (calc) [facility] Bilirubin, total 0.3 0.2 - 1.2 mg/dL [facility] Alk phos 45 36 - 130 U/L [facility] AST 20 10 - 40 U/L [facility] ALT (SGPT) 20 9 - 46 U/L [facility] Blood 12/18/2024 10:3 7 AM CDT 12/18/2024 10:37 AM CDT Narrative [facility] - 12/19/2024 6:53 AM CDT FASTING:NO FASTING: NO Racheal MENA LAB BLOOD ORDERABLES Final Result Performing Organization Address City/State/[facility] Co de Phone Number NAT [facility] [address] [place] [address] from Last 3 Months Insurance [facility] Care Teams Building Architect Relationship Specialty Start Date End Date Racheal Wilkerson PA [address] [facility] [address] [place] [address] PCP - General Internal Medicine 07/25/19
--- OUTSIDE RECORDS SUMMARY | 2024-12-21 08:02 | XMS_ITS | Encounter Summary ---
Author Organization [facility] Healthcare Address [address] [place] [address] Care Team Providers Care Air Cargo Specialist Name Role Phone Racheal Wilkerson Primary Care Provider +1- [phone] Encounter Details Date Type Department Care Team (Late st Contact Info) Description 12/19/2024 Results Follow-Up [facility] Medical Group Family Medicine [address] [facility] [address] [place] [address] Racheal Wilkerson PA [address] [facility] [address] [facility] [address] [place] [address] Social History Tobacco Use Types Packs/Day Years [...] on file 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
--- OUTSIDE RECORDS SUMMARY | 2024-12-21 08:02 | XMS_ITS | Clinical Summary ---
Author Organization [facility] [address] [facility] Address [address] [place] [address] Care Team Providers Care Check Out Clerk Name Role Phone Racheal Wilkerson Primary Care Provider +1- [phone] Allergies No known active allergies Medications multivitamin [...] Discussed with patient at length diabetes, pathogenesis, watermelon harvesting supervisor sequela, end organ damage, diet/exercise/weight loss, and [...] feet on a regular basis to avoid watermelon harvesting supervisor problems. Offered referral to aemt. Discussed medication options including the risks benefits [...] post lap appendectomy by Dr. staples at [facility]. He has tolerated the procedure [...] Department Care Team Description 12/19/2024 Results Follow-Up [address] [place] [phone] Racheal Wilkerson PA 12/11/2024 11:00 AM CDT Office Visit [address] [place] [phone] Racheal Wilkerson PA 12/06/2024 Orders Only [address] [place] [phone] Racheal Wilkerson PA Neck pain (Primary Dx); Acute pain of right shoulder; Right elbow pain 12/06/2024 Nurse Triage [address] [place] [phone] Azeem Rice RN 11/15/[address] [place] [phone] Racheal Wilkerson PA Reminder to get labs [...] on file 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 on file Not [...] 12/11/2024 11:14 AM CDT Plan of Treatment Health Maintenance Due Date Last Done Comments Hepatitis C Screening 1980 Dilated Eye Exam 1980 Foot Exam 1980 Varicella Vaccines (1 of 2 - 13+ 2-dose series) 1993 Hepatitis B Screening 1998 Regular Well Visit/Exam 18-64 1998 Pneumococcal vaccine <65 (1 of 2 - PCV) 12/11/1999 Covid-19 Vaccine (3 - season) 2024 07/18/2021, 06/27/2021 DTaP/Tdap/Td Vaccine (2 - Td or Tdap) 12/17/2024 12/17/2014 Hemoglobin A1C 06/20/2025 12/18/2024, 06/27/2024 Depression Screening 12/11/2025 12/11/2024, 07/20/2024, 05/28/2023, Additional history exists Albumin Creatinine Ratio, Urine 12/18/2025 12/18/2024 Lipid Panel 12/18/2025 12/18/2024, 06/27/2024 eGFR 12/18/2025 12/18/2024, 06/27/2024 Influenza Vaccine Completed 07/20/2024, 06/27/2019 HPV Vaccines [...] LAB URINE ORDERABLES Final Result [facility] [address] [place] [address] * (ABNORMAL) Hemoglobin A1c (12/18/2024 10:37 AM CDT) Pathologist [facility] Hgb A1C 5.8(H) <5.7 % of total Hgb [facility] Comment: For someone without known diabetes, [...] Racheal MENA LAB BLOOD ORDERABLES Final Result [facility] [address] [place] [address] * Vitamin B12 (12/18/2024 10:37 AM CDT) Pathologist [facility] Vitamin B12 549 200 - 1,100 pg/mL [facility] Blood 12/18/2024 10:3 7 AM CDT 12/18/2024 10:37 AM CDT Narrative [facility] - 12/19/2024 6:53 AM CDT FASTING:NO FASTING: NO Racheal MENA LAB BLOOD ORDERABLES Final Result [facility] [address] [place] [address] * Lipid panel (12/18/2024 10:37 AM CDT) [facility] Cholesterol 154 <200 mg/dL [facility] HDL 57 > OR = 40 mg/dL [facility] Triglycerides 70 <150 mg/dL [facility] LDL 82 mg/dL (calc) [facility] Comment: Reference range: <100 Desirable range <100 mg/dL for primary prevention; <70 mg/dL for patients with CHD or diabetic patients with > or = 2 CHD risk factors. LDL-C is now calculated using the Willow calculation, which is a validated novel method providing better accuracy than the Friedewald equation in the estimation of LDL-C. Narinder REVELES et al. SARAH. 2013;310(19): 1515-8146 (http://education.Nutmeg Education.Archive/faq/LUA907) Chol/HDL ratio 2.7 <5.0 (calc) [facility] Non-HDL, (LDL+VLDL) 97 <130 mg/dL (calc) [facility] Comment: For patients with diabetes plus 1 major ASCVD risk factor, treating to a non-HDL-C goal of <100 mg/dL (LDL-C of <70 mg/dL) is considered a therapeutic option. Blood 12/18/2024 10:3 7 AM CDT 12/18/2024 10:37 AM CDT Narrative [facility] - 12/19/2024 6:53 AM CDT FASTING:NO FASTING: NO Racheal MENA LAB BLOOD ORDERABLES Final Result NAT [facility] [address] [place] [address] * Comprehensive metabolic panel (12/18/2024 10:37 AM CDT) Pathologist [facility] Glucose 91 65 - 139 mg/dL [facility] Comment: Non-fasting reference interval BUN 19 7 - 25 mg/dL [facility] Creatinine 0.85 0.60 - 1.29 mg/dL [facility] eGFR 110 > OR = 60 mL/min/1.7 3m2 [facility] BUN/creat ratio SEE NOTE: 6 - 22 (calc) [facility] Comment: Not Reported: BUN and Creatinine are within reference range. Sodium 139 135 - 146 mmol/L [facility] Potassium, pl 5.0 3.5 - 5.3 mmol/L [facility] Chloride 103 98 - 110 mmol/L [facility] CO2 27 20 - 32 mmol/L [facility] Calcium 9.9 8.6 - 10.3 mg/dL [facility] Protein, sr 7.2 6.1 - 8.1 g/dL [facility] Albumin 5.1 3.6 - 5.1 g/dL [facility] GLOBULIN 2.1 1.9 - 3.7 g/dL (calc) [facility] Alb/glob ratio 2.4 1.0 - 2.5 (calc) [facility] Bilirubin, total 0.3 0.2 - 1.2 mg/dL [facility] Alk phos 45 36 - 130 U/L [facility] AST 20 10 - 40 U/L [facility] ALT (SGPT) 20 9 - 46 U/L [facility] Blood 12/18/2024 10:3 7 AM CDT 12/18/2024 10:37 AM CDT Narrative [facility] - 12/19/2024 6:53 AM CDT FASTING:NO FASTING: NO Racheal MENA LAB BLOOD ORDERABLES Final Result [facility] [address] [place] [address] from Last 3 Months Insurance [facility] Care Teams Check Out Clerk Relationship Specialty Start Date End Date Racheal Wilkerson PA [address] [place] [address] PCP - General Internal Medicine 07/25/19
--- OUTSIDE RECORDS SUMMARY | 2024-12-21 08:02 | XMS_ITS | Clinical Summary ---
Author Organization [facility] Address [address] [facility] [address] [place] [address] Phone Care Team Providers Care Vibrating Screen Operator Name Role Phone Unavailable Primary Care Provider [...]
--- OUTSIDE RECORDS SUMMARY | 2024-12-21 08:02 | XMS_ITS | Clinical Summary ---
Author Organization [facility] Address [address] [facility] [place] [address] Care Team Providers Care Netting Inspector Name Role Phone Racheal Wilkerson PA-C Primary Care Provider [phone] [phone] Source Comments [facility],non-owned Affiliates and Associated Physician Practices is amultiple site organization consisting of ambulatory clinics and hospital sitesin [place], [place], [place] and [place]. This disclosure is being madepursuant to the Care Everywhere program and may not contain all information available regarding this patient. Last updated 18.[facility] Allergies No known active allergies Medications * Be aware that medications may not be up to date on this document. Alwaysverify current medications with the patient. Medication Sig Dispensed Refills Start Date End Date Status Loratadine (CLARITIN PO) Active multivitamins (ONE A DAY) capsule Take 1 capsule by mouth once daily Active Fyvaeg-Ddaiecksb-Eluf uron-MSM (GLUCOSAMINE CHONDROITIN JOINT PO) Act felicitas fluticasone propionate (FLONASE) 50 MCG/ACT nasal sprayIndications:Acut e non-recurrent sinusitis of other sinus Arnold 2 sprays into each nostril once daily [...] to complete this topic MENINGOCOCCAL (Group B) VACC INE SHARED DECISION-MAKING Aged Out No longer eligibl e based on patient's age to complete this topic MENINGOCOCCAL GROUPS A/C/Y/W VACCINE Aged Out No longer eligible b ased on patient's age to complete this topic PNEUMOCOCCAL VACCINE Aged Out No long er eligible based on patient's age to complete this topic Care Teams Netting Inspector Relationship Specialty Start Date End Date Racheal Wilkerson, PADelbertC PCP - General Physician Imaging Account Manager 04/24/18
--- OUTSIDE RECORDS SUMMARY | 2024-12-21 08:02 | XMS_ITS | Encounter Summary ---
Author Organization [facility] Healthcare Address [address] [place] [address] Care Team Providers Care Telephone Diaphragm Assembler Name Role Phone Racheal Wilkerson Primary Care Provider +1- [phone] Reason for Visit * Reason Onset Date Comments Neck Pain 12/06/2024 Shoulder Pain 12/06/2024 Encounter Details Date Type Department Care Team (Late st Contact Info) Description 12/06/2024 Nurse Triage [facility] Family Medicine [address] [facility] [address] [place] [address] Azeem Rice RN Social History Tobacco Use Types Packs/Day Years [...] staff should administer the PHQ-9) 0 07/20/2024 Sex and Gender Information Value Date Recorded Sex Assigned at Not on file 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 * Telephone Encounter - Racheal Wilkerson PA - 12/19/2024 7:39 AM CDT It may take a bit longer for the gabapentin to reach full effect, but if he is in this much pain, he can increase to gabapentin 600mg tid. * Telephone Encounter - Mana Greenwood - 12/18/2024 10:48 AM CDT Symptom Based Call Chief Complaint(s): Radiating pain in neck shooting down in back, shoulder and forearm. Pt says shecannot sleep. Duration: 12/01/24 What type of symptom(s) is the patient experiencing? Red Flag. Is the patient concerned they are experiencing a medical emergency requiring an ambulance? No Additional Comments: Pt asking can he get medication for pain and to help him sleep. [id number] Does message need to be routed? Yes-Action Needed * Telephone Encounter - Monica Irizarry LPN - 12/06/2024 1:14 PM CDT PT order placed and faxed. Called and LVM to make pt aware. * Telephone Encounter - Monica Irizarry LPN - 12/06/2024 9:53 AM CDT Called pt and scheduled him for first available appt on Monday 12/11. Informed pt I would ask PCP ifa PT order can be placed in the meantime for [facility] in [place]. Will speak to provider and advise pt once an answer is received. * Telephone Encounter - Azeem Rice RN - 12/06/2024 8:02 AM CDT Luis Kibmrough Has c/o intermittent neck pain, radiating to R shoulder down to elbow starting on . Pain is7/10 at this time. Pain depends on movement. Intermittent tingling in fingers, denies at this time,denies numbness. Pt is able to use arm and lift arm above head. UC on Wednesday, was prescribed a muscle relaxer and Ibuprofen. Chiropractor on Wednesday and yesterday, had an x-ray done, showed vertebrae are smaller. Has some neck swelling. Using Biofreeze. Denies BEDOLLA, fever, CP or difficulty breathing/SOB. 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 Discussed worsening signs and symptoms of condition on which to call back. Pt verbalizes understanding. Routed to PCP: No appts available this week. Pt is requesting PCP recommendations and if PT at [facility] can be ordered. Contact pt with PCP recommendations. Reason for Disposition Patient wants to be seen Protocols used: Neck Pain or [id number] * Telephone Encounter - Azeem Rice RN - 12/06/2024 7:49 AM CDT Regarding: Neck Pain/Right Shoulder Pain ----- Message from Chacho Wyatt sent at 12/06/2024 7:42 AM CDT ----- Symptom Based Call Chief Complaint(s): Neck Pain/Right Shoulder Pain Duration: Ongoing-Worsening What type of symptom(s) is the patient experiencing? Non-Emergent. Is this a new or reoccurring symptom(s)? Reoccurring What have you tried to help your symptom(s)? XR taken on 12/02/24 at Urgent Care, Chiropractor, Biofreeze, Muscle Relaxant from urgent Care on 12/02/24 Why was appointment not scheduled? Appointment availability did not meet the patient's need. Additional Comments: Patient seeking same day appt for further evaluation and treatment of ongoing neck and right shoulder pain that has not improved with above treatment. Patient would also like to start Physical Therapy at [facility], however he will need to see provider first. Does message need to be routed? Yes-Action Needed documented in this encounter Plan of Treatment Not on file documented as of this encounter Visit Diagnoses Not on filedocumented in this encounter Care Teams Telephone Diaphragm Assembler Relationship Specialty Start Date End Date Racheal Wilkerson PA [address] [address] PCP - General Internal Medicine 07/25/19 documented as of this encounter
[2024-12-21] MEDS: dexAMETHasone SOD PHOS INJ 10 MG/ML 1 ML VIAL IM (08:41)
[2024-12-21] MEDS: KETOROLAC 30 MG/ML VIAL (*BKC) IM (08:41)
[2024-12-21] MEDS: ACETAMINOPHEN 500 MG TABLET 1000 MG PO (08:41)
[2024-12-21] MEDS: LIDOCAINE 5% PATCH 1 PATCH TRANSDERM (08:42)
[2024-12-21] MEDS: diazePAM INJ (*CRX) 10 MG/2 ML SYRINGE 5 MG IM (08:42)
--- OUTSIDE RECORDS SUMMARY | 2024-12-21 08:42 | XMS_ITS | Referral Summary ---
Author Organization [address] Address [address] [place] [address] Care Team Providers Care Barkeep Name Role Phone Racheal Wilkerson Primary Care Provider +1- [phone] Encounters Date Type Department Care Team Description 12/19/2024 Results Follow-Up [address] [place] [address] Racheal Wilkerson PA 12/11/2024 11:00 AM CDT Office Visit [address] [place] [phone] Racheal Wilkerson PA 12/06/2024 Orders Only [address] [place] [address] Racheal Wilkerson PA Neck pain (Primary Dx); Acute pain of right shoulder; Right elbow pain 12/06/2024 Nurse Triage [address] [place] [phone] Azeem Rice RN 11/15/[address] [place] [address] Racheal Wilkerson PA Reminder to get [...] Discussed with patient at length diabetes, pathogenesis, shelter sequela, end organ damage, diet/exercise/weight loss, and [...] to avoid shelter problems. Offered referral to gun mechanic. Discussed medication options including the risks benefits [...] post lap appendectomy by Dr. staples at [facility]. He has tolerated the procedure well. 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 Not [...] LAB URINE ORDERABLES Final Result [facility] [address] [place] [address] * (ABNORMAL) Hemoglobin A1c (12/18/2024 10:37 AM CDT) Hgb A1C 5.8(H) <5.7 % of total Hgb [facility] Comment: For someone without known diabetes, [...] BLOOD ORDERABLES Final Result Performing Organization Address City/[facility]/ZIP Co de Phone Number [facility] [address] [place] [address] * Vitamin B12 (12/18/2024 10:37 AM CDT) [facility] Vitamin B12 549 200 - 1,100 pg/mL [facility] Blood 12/18/2024 10:3 7 AM CDT 12/18/2024 10:37 AM CDT Narrative [facility] - 12/19/2024 6:53 AM CDT FASTING:NO FASTING: NO Racheal MENA LAB BLOOD ORDERABLES Final Result [facility] [address] [place] [address] * Lipid panel (12/18/2024 10:37 AM CDT) [facility] Cholesterol 154 <200 mg/dL [facility] HDL 57 > OR = 40 mg/dL [facility] Triglycerides 70 <150 mg/dL [facility] LDL 82 mg/dL (calc) [facility] [...] LDL-C. Narinder REVELES et al. SARAH. 2013;310(19): 0024-7595 (http://education.localstay.com/faq/YWO056) Chol/HDL ratio 2.7 <5.0 (calc) [facility] Non-HDL, (LDL+VLDL) 97 <130 mg/dL (calc) [facility] Comment: For patients with diabetes plus 1 major ASCVD risk factor, treating to a non-HDL-C goal of <100 mg/dL (LDL-C of <70 mg/dL) is considered a therapeutic option. Blood 12/18/2024 10:3 7 AM CDT 12/18/2024 10:37 AM CDT Narrative [facility] - 12/19/2024 6:53 AM CDT FASTING:NO FASTING: NO Racheal MENA LAB BLOOD ORDERABLES Final Result [facility] [address] [place] [address] * Comprehensive metabolic panel (12/18/2024 10:37 AM CDT) [facility] Glucose 91 65 - 139 mg/dL Nat [...] ALT (SGPT) 20 9 - 46 U/L [facility] Blood 12/18/2024 10:3 7 AM CDT 12/18/2024 10:37 AM CDT Narrative [facility] - 12/19/2024 6:53 AM CDT FASTING:NO FASTING: NO Racheal MENA LAB BLOOD ORDERABLES Final Result Performing Organization Address City/State/[facility] Co de Phone Number [facility] [address] [place] [address] from Last 3 Months Insurance [facility] Care Teams Barkeep Relationship Specialty Start Date End Date Racheal Wilkerson PA [address] [facility] [address] [place] [address] PCP - General Internal Medicine 07/25/19
--- OUTSIDE RECORDS SUMMARY | 2024-12-21 08:42 | XMS_ITS | Encounter Summary ---
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 [id number] Does message need to be routed? Yes-Action [...] placed in the meantime for [facility] in [place]. Will speak to provider and advise pt once an answer is received. 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 Discussed worsening signs and symptoms of condition on which to call back. Pt verbalizes understanding. Routed to PCP: No appts available this week. Pt is requesting PCP recommendations and if PT at [facility] can be ordered. Contact pt with PCP recommendations. Reason for Disposition Patient wants to be seen Protocols used: Neck Pain or [id number] * Telephone Encounter - Azeem Rice RN [...] also like to start Physical Therapy at [facility], however he will need to see provider first. Does message need to be routed? Yes-Action Needed documented in this encounter Plan of Treatment Not on file documented as of this encounter Visit Diagnoses Not on filedocumented in this encounter Care Teams Process Camera Operator Relationship Specialty Start Date End Date Racheal Wilkerson PA [address] [address] PCP - General Internal Medicine 07/25/19 documented as of this encounter
--- OUTSIDE RECORDS SUMMARY | 2024-12-21 08:42 | XMS_ITS | Clinical Summary ---
Author Organization [facility] Address [address] [facility] [address] [place] [address] Phone Care Team Providers Care Supervisor Net Making Name Role Phone Unavailable Primary Care Provider [...]
--- OUTSIDE RECORDS SUMMARY | 2024-12-21 08:42 | XMS_ITS | Encounter Summary ---
Author Organization [facility] Healthcare Address [address] [place] [address] Care Team Providers Care Manager Custom Name Role Phone Racheal Wilkerson Primary Care Provider +1- [phone] Encounter Details Date Type Department Care Team (Late st Contact Info) Description 12/19/2024 Results Follow-Up [facility] Medical Group Family Medicine [address] [facility] [address] [place] [address] Racheal Wilkerson PA [address] [facility] [address] [place] [address] Social History Tobacco Use Types [...] on file 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
--- NOTE | 2024-12-21 08:43 | ED.GENADULT ---
HPI - General Adult General Chief complaint: Neck Pain/Injury Stated complaint: right neck pain Time Seen by Provider: 12/21/24 08:03 History of Present Illness HPI narrative: This is a 44-year-old male history of cervical radiculopathy presenting with neck pain. Patient has been having right-sided pain in his neck that radiates into his arm for the last 3 weeks. He has been treated with muscle relaxers and gabapentin. He had an MRI Wednesday but he has not received the results yet. Yesterday he was having trouble sleeping and slept in a chair when he woke up this morning the pain was worse than usual. He ran out of muscle relaxers last week. He has been using Motrin with minimal relief. Related Data Home Medications ?Medication ?Instructions ?Recorded ?Confirmed ?Last Taken ?Type lisinopril 2.5 mg tablet 2.5 mg PO DAILY 12/02/24 12/02/24 Unknown History rosuvastatin 5 mg tablet 5 mg PO DAILY 12/02/24 12/02/24 Unknown History Allergies Allergy/AdvReac Type Severity Reaction Status Date / Time No Known Allergies Allergy Verified 12/21/24 08:02 [facility] Past Medical History Medical History History of high cholesterol History of high blood pressure Dog bite, hand Surgical History Surgical History History of laparoscopic appendectomy 03/18/22 Social History Social History Smoking status: Never smoker Alcohol intake: current Alcohol use details: occasional Substance use: never Gender identity (if verbalized by the patient): Male Exam Narrative: APPEARANCE: No apparent distress. Head: atraumatic. EYES: EOMI, NOSE: Atraumatic NECK: No midline cervical tenderness, tenderness over the right paracervical muscles and right trapezius RESPIRATORY: No increased rate of breathing, clear to auscultation CARDIOVASCULAR: RRR, ABDOMINAL: Non-distended MUSCULOSKELETAl: No obvious deformities NEURO: Alert. Focal exam of right upper extremity Radial ulnar median nerve motor function intact. Strong radial and ulnar pulses. No overlying skin changes. Soft compartments. SKIN:: Warm, dry. Normal color PSYCHIATRIC: Normal affect Course Vital Signs Vital signs: Vital Signs Temperature 97.6 F 12/21/24 07:59 Pulse Rate 82 12/21/24 07:59 Respiratory Rate 18 12/21/24 07:59 Blood Pressure 152/90 H 12/21/24 07:59 Pulse Oximetry 100 12/21/24 07:59 Oxygen Delivery Room Air 12/21/24 07:59 Temperature 97.6 F 12/21/24 07:59 Pulse Rate 82 12/21/24 07:59 Respiratory Rate 18 12/21/24 07:59 Blood Pressure 152/90 H 12/21/24 07:59 Pulse Oximetry 100 12/21/24 07:59 Oxygen Delivery Room Air 12/21/24 07:59 Medical Decision Making MDM Narrative Medical decision making narrative: -Course: 44-year-old male with cervical real apathy presenting with increased pain. Neurologic exam is normal. No other concerning findings on history physical. Patient's pain was treated in the ED. He was given a prescription for muscle relaxers and anti-inflammatories. Patient has appropriate outpatient follow-up and is awaiting the results of his MRI. Given return precautions -DDX includes but is not limited to: Muscle strain, cervical radiculopathy Vital Signs Vital Signs: Vital Signs Temperature 97.6 F 12/21/24 07:59 Pulse Rate 82 12/21/24 07:59 Respiratory Rate 18 12/21/24 07:59 Blood Pressure 152/90 H 12/21/24 07:59 Pulse Oximetry 100 12/21/24 07:59 Oxygen Delivery Room Air 12/21/24 07:59 Temperature 97.6 F 12/21/24 07:59 Pulse Rate 82 12/21/24 07:59 Respiratory Rate 18 12/21/24 07:59 Blood Pressure 152/90 H 12/21/24 07:59 Pulse Oximetry 100 12/21/24 07:59 Oxygen Delivery Room Air 12/21/24 07:59 Discharge Plan Discharge Clinical Impression: Cervical radiculopathy Patient Disposition: Home, Self-Care Condition: Stable Instructions: Antibiotic Form, Cervical Radiculopathy (ED) Additional Instructions: Please use the medications as prescribed. Please follow-up with your primary care physician to get the results of her MRI. Please return if he develops severe pain or weakness in your arms. Patient Language: German Prescriptions: New acetaminophen 500 mg tablet 1,000 mg PO TID PRN (Reason: chano) 7 Days Qty: 42 0RF ibuprofen 800 mg tablet 800 mg PO TID PRN (Reason: pain) 7 Days Qty: 21 0RF methocarbamol 750 mg tablet 1,500 mg PO TID Qty: 35 0RF lidocaine 5 % adhesive patch,medicated 1 patch topical DAILY Qty: 15 0RF Rx Instructions: leave on most painful area for up to 12 hrs No Action lisinopril 2.5 mg tablet 2.5 mg PO DAILY rosuvastatin 5 mg tablet 5 mg PO DAILY baclofen 10 mg tablet 10 mg PO TID PRN (Reason: muscle pain) Qty: 10 0RF ibuprofen 600 mg tablet 600 mg PO TID PRN (Reason: fever or pain) Qty: 30 0RF Follow-up/Referrals: Rock,TRINA Springer [Primary Care Provider] - 1 Week (cervical radiculopathy ])
[2024-12-21 08:45] VITALS: BP 123/84; PULSE 85; RESP 18; O2SAT 100
== END 2024-12-21 09:36 | disposition home or self-care (01) ==
PROVIDERS: Emergency Provider Emergency Medicine; PCP Physician Assistant
DX: M54.12 Radiculopathy, cervical region (principal); I10 Essential (primary) hypertension; E78.00 Pure hypercholesterolemia, unspecified; Z79.899 Other long term (current) drug therapy
CPT/HCPCS: 96372; 99284; A9270; J1100; J1885; J3360